=== PATIENT | female | born 1990 | race Caucasian/White ===

== ENCOUNTER → 2017-04-17 15:41 | Outpatient (CLI) | payer OTHER, SELFPAY ==
[2017-04-17 18:18] LABS: Group B Strep DNA By PCR POSITIVE (Negative); Probe Check PASS
== END ==
PROVIDERS: Family Provider Nurse Practitioner Adult Health; PCP Nurse Practitioner Adult Health; Visit Provider Obstetrics & Gynecology
DX: Z36.85 Encounter for antenatal screening for Streptococcus B (principal)
CPT/HCPCS: 87653

== ENCOUNTER 2017-04-22 15:05 | Outpatient (CLI) | payer OTHER, SELFPAY ==
--- NOTE | 2017-04-24 08:42 | OB.TRI.NOTE ---
History of Present Illness Reason For Visit: NST Date of Service: 04/22/17 Gestational age: 37.5 History of Present Illness: 26yo @ 37 5/7wga with GDMA2 for scheduled NST. Home Medications Medication Instructions Recorded Levothyroxine [Synthroid] 100 mcg PO DAILY 08/10/15 Pnv95/Iron Fum/Folic Acid 1 each PO DAILY 08/10/15 [ Caplet] Ondansetron [Zofran Odt] 4 mg PO Q8H PRN PRN #10 tablet 01/27/16 Ondansetron [Zofran] 4 mg IV Q8H PRN PRN #0 vial 01/27/16 Oxycodone HCl/Acetaminophen 1 - 2 tablet PO Q4H PRN PRN #0 01/27/16 [Percocet 5-325] tablet Oxycodone HCl/Acetaminophen 1 - 2 tablet PO Q4H PRN PRN #30 01/27/16 [Percocet 5-325] tablet Allergies No Known Allergies Allergy (Verified 01/27/16 03:49) Physical Exam Vitals: VSS NST - FHR Rate Baby A Baseline: 130 Variability:: Moderate Accelerations:: 15 x 15 Decelerations:: None NST Reactive:: Yes FHR Category:: Category I Uterine Activity:: 03/26 Impression/Plan 26yo @ 37 5/7wga with GDM, Cat I FHR - status reassuring -d/c home
== END 2017-04-22 15:55 | disposition home or self-care (01) ==
LOC: WPOUT 15:17 → WP 15:19
PROVIDERS: Family Provider Nurse Practitioner Adult Health; PCP Nurse Practitioner Adult Health; Visit Provider Obstetrics & Gynecology
DX: O24.410 Gestational diabetes mellitus in pregnancy, diet controlled (principal); Z3A.37 37 weeks gestation of pregnancy
CPT/HCPCS: 59025; 59050; 99218; G0378

== ENCOUNTER 2017-05-01 05:33 | Inpatient (IN) | payer OTHER, SELFPAY ==
[2017-04-29 10:23] LABS: Absolute Lymphocyte Count 1.54 X10^3/ul (0.83-4.51); Basophil# 0.02 X10^3/uL; Basophil% 0.2 % (0-1); Eosinophil# 0.04 X10^3/uL; Eosinophils% 0.4 % (0-5); Hemoglobin 11.7 g/dl (12.0-15.0); International Normalized Ratio 0.9; Lymphocyte # 1.54 X10^3/ul (4.0); Lymphocyte % 13.8 % (19-41); Mean Corp Hgb Conc 32.5 g/gl (32-36); Mean Corpuscular Hgb 28.3 pg (27.0-32.0); Mean Platelet Vol. 10.5 fl (6.2-12.0); Monocyte# 0.47 X10^3/uL; Monocyte% 4.2 % (0-10); Neutrophil # 9.03 X10^3/uL (2.7-7.7); Neutrophil % 81.2 % (47-70); Platelet Count 306 K/mm3 (150-450); Prothrombin Time (Protime)PT. 12.2 SECONDS (11.7-14.9); RBC Distribution Width CV 14.5 % (11.6-14.6); RBC Distribution Width SD 44.9 fl (35.1-43.9); Red Blood Count 4.14 M/mm3 (4.2-5.4); White Blood Count 11.1 K/mm3 (4.4-11.0)
[2017-04-29 10:24] LABS: POSITIVE COUNT NO; POSITIVE DIFFERENTIAL NO; POSITIVE MORPHOLOGY NO; Partial Thromboplast Time 29.7 Seconds (24.1-36.2)
[2017-05-01] VITALS (19 sets, daily range): BP systolic 103–130; BP diastolic 48–82; PULSE 84–114; RESP 13–18; TEMP 36.3–37.2; O2SAT 95–100; BMI 48.4
[2017-05-01] MEDS: Lactated Ringers 1,000 ML 999 ML IV (05:45)
[2017-05-01 06:36] LABS: Bedside Glucose 84 mg/dL (70-110)
[2017-05-01] MEDS: Sodium Citrate/Citric Acid 30 ML UDC PO (07:11)
[2017-05-01] MEDS: Lactated Ringers 1,000 ML 150 ML IV (07:13)
[2017-05-01] MEDS: Oxytocin 30 units/NS 500 ml 30 UNITS/500 ML IV.SOLN 167 UNITS IV (07:53)
[2017-05-01 12:21] LABS: Bedside Glucose 100 mg/dL (70-110)
[2017-05-01] MEDS: Lactated Ringers 1,000 ML 100 ML IV ×2 (12:54→21:16)
[2017-05-01] MEDS: Ketorolac 30 MG/ML Syringe IV ×2 (15:07→21:16)
[2017-05-02] VITALS (7 sets, daily range): BP systolic 109–126; BP diastolic 68–79; PULSE 95–108; RESP 16–18; TEMP 36.5–36.9; O2SAT 97–100
[2017-05-02] MEDS: Ketorolac 30 MG/ML Syringe IV ×4 (04:16→22:23)
[2017-05-02 05:35] LABS: Hematocrit 29.3 % (37-47); Hemoglobin 9.4 g/dl (12.0-15.0); Mean Corp Hgb Conc 32.1 g/gl (32-36); Mean Corpuscular Hgb 28.1 pg (27.0-32.0); Mean Corpuscular Volume 87.5 fL (81-99); Mean Platelet Vol. 9.5 fl (6.2-12.0); Platelet Count 244 K/mm3 (150-450); RBC Distribution Width CV 14.7 % (11.6-14.6); Red Blood Count 3.35 M/mm3 (4.2-5.4); White Blood Count 10.2 K/mm3 (4.4-11.0)
[2017-05-02 05:44] LABS: Scan Indicated on CBC? Y/N NO
[2017-05-02] MEDS: Levothyroxine 100 MCG Tablet PO (05:55)
--- NOTE | 2017-05-02 06:20 | NURSING ---
bgt 108.
[2017-05-02 06:21] LABS: Bedside Glucose 108 mg/dL (70-110)
--- NOTE | 2017-05-02 08:43 | PCM.PN.OB ---
Patient Problems: Active and Suspected Problems 39 weeks gestation of (Acute) Subjective: Pain is minimal. Zuleika was out of bed and ambulating. No flatus yet. Denies nausea or vomiting. Tolerates regular diet. cluster fed overnight. She is nursing well. Denies heavy lochia. Objective: avss - Physical Exam General: Alert, Oriented x3, Cooperative, No apparent distress HEENT: Atraumatic, Normocephalic Lungs: Clear to auscultation, Normal air movement Cardiovascular: Regular rate, Regular Rhythm, Normal S1, Normal S2 Abdomen: Soft, Non Tender, Non-Distended, - - fundus firm and nontender, dressing c/d/i Extremities: No edema, No Calf Tenderness Neurological: Neuro grossly intact Psych/Mental Status: Normal Affect, Appropriate, Alert and oriented to time, place, person, mood and affect Vital Signs Temp Pulse Resp BP Pulse Ox 97.8 F 100 18 118/71 99 05/02/17 04:00 05/02/17 06:21 05/02/17 06:21 05/02/17 04:00 05/02/17 06:21 Oxygen Delivery Method Room Air Weight: 136.248 kg Body Mass Index (BMI) 48.4 Intake and Output for Last 24 Hours 04/30/17 05/01/17 05/02/17 23:59 23:59 23:59 Intake Total 4428 / 4428 1307 / 1307 Output Total 2250 / 2250 1600 / 1600 Balance 2178 / 2178 -293 / -293 Laboratory Tests Past 24 Hrs 05/02/17 05:20 WBC 10.2 RBC 3.35 L Hgb 9.4 L Hct 29.3 L MCV 87.5 MCH 28.1 MCHC 32.1 RDW 14.7 H RDW Differential 47.0 H Plt Count 244 MPV 9.5 POC Glucose 05/02/17 05/01/17 06:17 12:15 POC Glucose 108 100 Assessment/Plan Active and Suspected Problems 39 weeks gestation of (Acute) 26yo POD#1 s/p RLTCS doing well. Rh neg - infant A neg, no Rhogam indicated Rubella immune Routine care
[2017-05-02] MEDS: Prenatal Vits Tablet 1 TABLET PO (10:26)
[2017-05-02] MEDS: 0.9% Saline Lock 10 ML Syringe IV ×3 (10:26→22:24)
[2017-05-02] MEDS: Acetaminophen 500 MG Tablet 1000 MG PO ×2 (14:08→20:59)
--- NOTE | 2017-05-02 16:45 | NURSING ---
1200 While rounding, Mom in shower but desires an electric breast pump through her insurance. Pump given and instructed on it's use. Mom encouraged to call if we can observe a latch. We also discussed doing some follow up pumping to help with accelerating her milk supply. Jamila DRAKE
--- NOTE | 2017-05-02 18:09 | OP.PCM_ITS ---
- Problem List (1) 39 weeks gestation of Status: Acute (2) delivery, delivered, current hospitalization Status: Acute Delivery Classification: Scheduled Final AKUA: 05/08/17 Final AKUA Source: US <20 weeks Gestational age: 39 Weeks and 4 Days Indications: 26-year-old 2 para 1001 at 39 weeks gestational age with gestational hypertension controlled with oral hypo-glycemic presents for scheduled elective repeat section. Indications for : Repeat Elective Description of Procedure: The patient was taken to the operating room and spinal analgesia was administered. She is placed in a dorsal supine position with left lateral tilt. The perineum and abdomen were prepped and draped in sterile fashion. And the spinal was found to be adequate. A Pfannenstiel incision was made using a scalpel and brought down to incise the subcutaneous tissue and rectus fascia at the midline. Subcutaneous tissue was bluntly dissected off the fascia laterally. There was a moderate amount of scarring. The fascial incision was dissected laterally and cephalad using curved Kaur scissors. The superior leaflet of the rectus fascia was grasped using Lucia clamps and bluntly dissected and sharply dissected from the underlying rectus muscle. In a similar fashion the inferior rectus fascia was dissected from the underlying muscle. The rectus muscles were bluntly at the midline. The peritoneum was identified and entered [sharply]. The bladder blade was placed into the abdomen and the vesicouterine peritoneal fold identified with thick adhesion to the abdominal wall peritoneum present. The adhesion was sharply dissected and the fold was incised and a bladder flap created. Bladder blade was then repositioned to the abdomen. A low transverse hysterotomy was made using the [Metzenbaum scissors] to level of the membranes. The hysterotomy was extended bluntly cephalad and caudad. The membranes were then ruptured revealing clear fluid. The head was elevated and brought to the level of the hysterotomy and the infant delivered revealing vigorous [male] . The cord was doubly clamped and cut after 30 seconds. The was passed to awaiting [nursery personnel]. The placenta was [expressed] from the uterus and appeared intact on inspection. The uterus was cleared of debris. The hysterotomy was then repaired using 0 Vicryl running lock suture. The bladder blade was removed. The anterior cul-de-sac was cleared of debris. The peritoneum and rectus muscles were reapproximated using 2-0 Vicryl running suture. The rectus fascia was closed using 0 Vicryl running suture. The subcutaneous tissue was sponge irrigated and small capillary bleeding controlled using the Bovie device. The subcutaneous tissue was reapproximated using 2-0 Vicryl. The skin was closed with 3-0 Vicryl at the dermis and 4-0 Monocryl subcuticularly by the BODY TEAM MEMBER under my supervision. This was followed by Cavilon and a Mepilex occlusive dressing was placed over the incision. The fundus was firm. The patient was then transferred to the recovery room without complication. Sponge, instrument, and needle counts were correct ?2. I was present for the entire procedure. Amniotic Membrane Rupture Type: Artificial Amniotic Fluid Description: Clear Placenta Disposition: [facility] Drain: Dawkins to straight drain Fluids Replaced: 1500 mL Cord Entanglement: None Nuchal Cord Compression: Without compression Cord Vessel Description: 3 Vessels Esitmated Blood Loss (ml): 700 mL Gender: Female (1 minute): 8 (5 minute): 9 Delayed cord clamping: Yes Pre-op Antibiotic Given: Ancef 2 grams IV x1 Pt instructed on risks of surgery: Bleeding, Anesthesia Risks, Infection, Need for Future C-Sections, Injury to surrounding structure(s) including bowel and bladder Complications: None - Admit VTE Documentation VTE Present on Admission: No VTE Mechan Device Prophylaxis: SCD's VTE Pharm Prophylaxis ordered?: No
[2017-05-03 01:35] VITALS: BP 130/84; PULSE 95; RESP 16; TEMP 36.4; O2SAT 98
[2017-05-03] MEDS: Acetaminophen 500 MG Tablet 1000 MG PO ×2 (05:08→16:51)
[2017-05-03] MEDS: Levothyroxine 100 MCG Tablet PO (05:08)
[2017-05-03 05:21] LABS: Bedside Glucose 95 mg/dL (70-110)
--- NOTE | 2017-05-03 07:55 | DCINST_ITS ---
Discharge Diet: No Restrictions Discharge Activity: Return to Normal Activity, May not drive while taking narcotic pain medications., May Shower May resume sexual activity in: 6 weeks Lifting Restrictions: 10 lb Call your doctor if your incision/area has: Continuous Slow Oozing, Sudden Increased Bleeding, Increased Pain/ Swelling, Increased Redness, Foul Smelling Discharge Call your doctor if you observe: Fever of 101 or Higher, Inability to urinate, Inability to have a bowel movement, Using more than one pad per hour, Shortness of breath, Chest pain, Uncontrolled pain Suture Line Care: Avoid Pulling/Pushing Cleanse incision/area with: Soap & Water Additional Instructions: If you experience any of the following, contact your healthcare provider. * Bleeding that soaks a pad every hour for 2 hours * Fever 100.4 or higher * Unrelieved incision or abdominal pain * Swelling, redness, discharge or bleeding from your incision or episiotomy site * Your incision begins to separate * Problems urinating (including inability to urinate or burning while urinating) . * Visual changes * Severe headache * Flu-like symptoms * Pain or redness in one of both of your breasts * Pain, warmth, tenderness or swelling in your legs, especially the calf area * Frequent nausea and vomiting * Symptoms of depression or anxiety If you experience any of the following, call 911 or go to the nearest Emergency Room. * Chest pain * Problems breathing * Seizure activity * Partial or complete paralysis of a body part, slurred speech, weakness or drooping of the face, or a sudden inability to walk or hold your balance Allergies/Adverse Reactions: Allergies No Known Allergies Allergy (Verified 04/29/17 09:48) Medications to take at Discharge Levothyroxine [Synthroid] 100 mcg PO DAILY 08/10/15 Pnv95/Iron Fum/Folic Acid [ Caplet] 1 each PO DAILY 08/10/15 Ibuprofen 800 mg PO TID PRN #30 tab 05/03/17 Oxycodone [Oxyir] 1 - 2 tab PO Q4H PRN PRN 3 Days #28 tablet 05/03/17 Senna/Docusate Sodium [Senokot-S] 1 - 2 tab PO DAILY PRN #60 tablet 05/03/17 The following prescriptions were given: Oxycodone [Oxyir] 1 - 2 tab PO Q4H PRN PRN 3 Days #28 tablet PRN Reason: Pain Ibuprofen 800 mg PO TID PRN #30 tab PRN Reason: Pain Orders to be completed after discharge: Electric breast pump Location: None Selected Follow-Up: Call to make an appointment with your doctor for an incision check in 1-2 weeks. You will also need a 6 week post- follow up appointment. Please Follow Up With: Kia Velasquez MD When: 1-2 weeks Primary Care Physician: Hiral Aleman NP-C [Primary Care Provider] -
[2017-05-03 08:40] VITALS: BP 132/79; PULSE 91; RESP 20; TEMP 36.3; O2SAT 100
--- NOTE | 2017-05-03 09:13 | PCM.PN.OB ---
Patient Problems: Active and Suspected Problems 39 weeks gestation of (Acute) Subjective: Doing well. Pain well controlled with ibuprofen only. Bleeding light. Breast feeding. Tolerating po well. Voiding. Objective: Afeb VSS - Physical Exam General: Alert, Oriented x3, Cooperative, No apparent distress Lungs: Clear to auscultation, Normal air movement Cardiovascular: Regular rate, Regular Rhythm Abdomen: Soft, Non Tender, Non-Distended, - - Fundus firm nontender. Incision dressing dry, no erythema. Extremities: No edema, No Calf Tenderness Skin: No rashes Neurological: Neuro grossly intact Psych/Mental Status: Normal Affect Comment: Lochia light Vital Signs Temp Pulse Resp BP Pulse Ox 97.6 F L 95 16 130/84 H 98 05/03/17 01:35 05/03/17 01:35 05/03/17 01:35 05/03/17 01:35 05/03/17 01:35 Oxygen Delivery Method Room Air Weight: 300 lb 6 oz Body Mass Index (BMI) 48.4 Intake and Output for Last 24 Hours 05/01/17 05/02/17 05/03/17 23:59 23:59 23:59 Intake Total 4428 / 4428 1307 / 1307 Output Total 2250 / 2250 3350 / 3350 Balance 2178 / 2178 -2043 / -2043 POC Glucose 05/03/17 05:16 POC Glucose 95 Assessment/Plan Active and Suspected Problems 39 weeks gestation of (Acute) Doing well on POD#2. Cleared for discharge home today. If baby able to be discharged will discharge home today. Home going instructions and warning given.
--- NOTE | 2017-05-03 09:15 | PCM.DC.SUM ---
Discharge Date and Diagnosis - Problem List Patient Problems: Active and Suspected Problems 39 weeks gestation of (Acute) Date of Admission: 05/01/17 Date of Discharge: 05/03/17 - Primary Discharge Diagnosis Active and Suspected Problems 39 weeks gestation of (Acute), s/p C/S Hospital Course and Treatment Operations: [email or web address] Summary of Care Provided: The patient is a 26 year old F [admitted, underwent uncomplicated vaginal delivery. Post operative course unremarkable. Discharged on POD#2.] Discharge Diet: No Restrictions Discharge Activity: Return to Normal Activity, May not drive while taking narcotic pain medications., May Shower May resume sexual activity in: 6 weeks Call your doctor if your incision/area has: Continuous Slow Oozing, Sudden Increased Bleeding, Increased Pain/ Swelling, Increased Redness, Foul Smelling Discharge Call your doctor if you observe: Fever of 101 or Higher, Inability to urinate, Inability to have a bowel movement, Using more than one pad per hour, Shortness of breath, Chest pain, Uncontrolled pain Suture Line Care: Avoid Pulling/Pushing Cleanse incision/area with: Soap & Water Home Medications: Medications to take at Discharge RX: Levothyroxine [Synthroid] 100 mcg PO DAILY 08/10/15 RX: Pnv95/Iron Fum/Folic Acid [ Caplet] 1 each PO DAILY 08/10/15 RX: Ibuprofen 800 mg PO TID PRN #30 tab 05/03/17 RX: Oxycodone [Oxyir] 1 - 2 tab PO Q4H PRN PRN 3 Days #28 tablet 05/03/17 RX: Senna/Docusate Sodium [Senokot-S] 1 - 2 tab PO DAILY PRN #60 tablet 05/03/17 Following Prescrptions Were Given to Patient: RX: Oxycodone [Oxyir] 1 - 2 tab PO Q4H PRN PRN 3 Days #28 tablet PRN Reason: Pain RX: Ibuprofen 800 mg PO TID PRN #30 tab PRN Reason: Pain Other Amb Orders: Electric breast pump Location: None Selected Primary Care Physician: Hiral Aleman NP-C [Primary Care Provider] - Please Follow Up With: Kia Velasquez MD When: 1-2 weeks Disposition: Home Minutes spent on discharge:: 15 Patient Condition:: Good Meaningful Use Info Meaningful Use Diagnoses (Choose all that apply): None applicable
[2017-05-03] MEDS: Ibuprofen 600 MG Tablet PO ×2 (10:00→20:55)
[2017-05-03 14:00] VITALS: BP 127/71; PULSE 83; RESP 16; TEMP 37
[2017-05-03] MEDS: Prenatal Vits Tablet 1 TABLET PO (15:07)
[2017-05-03 20:45] VITALS: BP 110/57; PULSE 95; RESP 16; TEMP 36.9
[2017-05-04 03:00] VITALS: BP 123/71; PULSE 96; RESP 16; TEMP 36.7
[2017-05-04] MEDS: Acetaminophen 500 MG Tablet 1000 MG PO (03:40)
[2017-05-04] MEDS: Levothyroxine 100 MCG Tablet PO (06:12)
[2017-05-04 07:50] VITALS: BP 115/64; PULSE 77; RESP 18; TEMP 36.3; O2SAT 100
[2017-05-04] MEDS: Ibuprofen 600 MG Tablet PO (08:14)
--- NOTE | 2017-05-04 09:07 | PCM.PN.OB ---
Patient Problems: Active and Suspected Problems 39 weeks gestation of (Acute) Subjective: Doing well. Pain well controlled. Bleeding light. Objective: Afeb VSS - Physical Exam General: Alert, Oriented x3, Cooperative, No apparent distress Lungs: Clear to auscultation, Normal air movement Cardiovascular: Regular rate, Regular Rhythm Abdomen: Soft, Non Tender, Non-Distended, - - Incision intact, dry, no erythema Skin: No rashes Neurological: Neuro grossly intact Psych/Mental Status: Normal Affect Comment: Lochia light Vital Signs Temp Pulse Resp BP Pulse Ox 98.0 F 96 16 123/71 H 100 05/04/17 03:00 05/04/17 03:00 05/04/17 03:00 05/04/17 03:00 05/03/17 08:40 Oxygen Delivery Method Room Air Weight: 300 lb 6 oz Body Mass Index (BMI) 48.4 Intake and Output for Last 24 Hours 05/02/18 05/03/18 05/04/17 23:59 23:59 23:59 Intake Total 1307 / 1307 Output Total 3350 / 3350 Balance -2042 / -2042 Assessment/Plan Active and Suspected Problems 39 weeks gestation of (Acute) Doing well on POD#3. Cleared for discharge home today. Home going instructions and warnings given.
--- NOTE | 2017-05-04 09:09 | PCM.DC.SUM ---
Discharge Date and Diagnosis - Problem List Patient Problems: Active and Suspected Problems 39 weeks gestation of (Acute) Date of Admission: 05/01/17 Date of Discharge: 05/04/17 - Primary Discharge Diagnosis Active and Suspected Problems 39 weeks gestation of (Acute) Hospital Course and Treatment Operations: - - C/S Summary of Care Provided: This is addendum to discharge summary from 05/03/17. Discharged today 05/04/17.] Discharge Diet: No Restrictions Discharge Activity: Return to Normal Activity, May not drive while taking narcotic pain medications., May Shower May resume sexual activity in: 6 weeks Call your doctor if your incision/area has: Continuous Slow Oozing, Sudden Increased Bleeding, Increased Pain/ Swelling, Increased Redness, Foul Smelling Discharge Call your doctor if you observe: Fever of 101 or Higher, Inability to urinate, Inability to have a bowel movement, Using more than one pad per hour, Shortness of breath, Chest pain, Uncontrolled pain Suture Line Care: Avoid Pulling/Pushing Cleanse incision/area with: Soap & Water Home Medications: Medications to take at Discharge Levothyroxine [Synthroid] 100 mcg PO DAILY 08/10/15 Pnv95/Iron Fum/Folic Acid [ Caplet] 1 each PO DAILY 08/10/15 Ibuprofen 800 mg PO TID PRN #30 tab 05/03/17 Ibuprofen [Motrin] 800 mg PO TID PRN PRN #30 tab 05/03/17 Levothyroxine [Synthroid] 100 mcg PO DAILY@0600 tablet 05/03/17 Oxycodone [Oxyir] 1 - 2 tab PO Q4H PRN PRN 3 Days #28 tablet 05/03/17 Oxycodone [Oxyir] 5 - 10 mg PO Q4H PRN PRN 7 Days #28 tab 05/03/17 Vits [Prenatabs FA ] 1 tablet PO DAILY@1200 tablet 05/03/17 Senna/Docusate Sodium [Senokot-S] 1 - 2 tab PO DAILY PRN #60 tablet 05/03/17 Following Prescrptions Were Given to Patient: Oxycodone [Oxyir] 1 - 2 tab PO Q4H PRN PRN 3 Days #28 tablet PRN Reason: Pain Oxycodone [Oxyir] 5 - 10 mg PO Q4H PRN PRN 7 Days #28 tab PRN Reason: Mod-Severe Pain (4-12/24) Ibuprofen [Motrin] 800 mg PO TID PRN PRN #30 tab PRN Reason: pain or cramping Ibuprofen 800 mg PO TID PRN #30 tab PRN Reason: Pain Other Amb Orders: Electric breast pump Location: None Selected Primary Care Physician: Hiral Aleman NP-C [Primary Care Provider] - Please Follow Up With: Kia Velasquez MD When: 1-2 weeks Disposition: Home Minutes spent on discharge:: 15 Patient Condition:: Good Meaningful Use Info Meaningful Use Diagnoses (Choose all that apply): None applicable
== END 2017-05-04 10:00 | disposition home or self-care (01) | DRG 765 ==
PROVIDERS: Admitting Provider Obstetrics & Gynecology; Family Provider Nurse Practitioner Adult Health; PCP Nurse Practitioner Adult Health; Visit Provider Obstetrics & Gynecology
DX: O34.211 Maternal care for low transverse scar from previous cesarean delivery (principal); Z68.43 Body mass index [BMI] 50.0-59.9, adult; E66.01 Morbid (severe) obesity due to excess calories; O13.4 Gestational [pregnancy-induced] hypertension without significant proteinuria, complicating childbirth; O99.214 Obesity complicating childbirth; O99.283 Endocrine, nutritional and metabolic diseases complicating pregnancy, third trimester; E03.9 Hypothyroidism, unspecified; Z37.0 Single live birth; Z3A.39 39 weeks gestation of pregnancy; Z83.3 Family history of diabetes mellitus
CPT/HCPCS: 82962; 85025; 85027; 85610; 85730; 86850; 86900; 99218; J7120; A4216; G0378; J2405

== ENCOUNTER → 2017-06-24 10:19 | Outpatient (CLI) | payer OTHER, SELFPAY ==
[2017-06-24 11:36] LABS: Free T3 2.6 pg/mL (2.18-3.98); T4 Free Direct 1.05 ng/dL (0.76-1.46); Thyroid Stim Hormone (TSH) 3.53 uIU/mL (0.358-3.74)
== END ==
PROVIDERS: Visit Provider Obstetrics & Gynecology
DX: E03.9 Hypothyroidism, unspecified (principal)
CPT/HCPCS: 36415; 84439; 84443; 84481

== ENCOUNTER → 2017-07-25 13:32 | Outpatient (CLI) | payer OTHER, SELFPAY ==
[2017-07-25 17:06] LABS: Chlamydia Trachomatis by PCR Negative (Negative); Neisserai gonorrhoeae by PCR Negative (Negative); Probe Check PASS; Sample Adequacy Control PASS; Specimen Processing Control PASS
== END ==
PROVIDERS: Visit Provider Obstetrics & Gynecology
DX: Z11.3 Encounter for screening for infections with a predominantly sexual mode of transmission (principal)
CPT/HCPCS: 87491; 87591

== ENCOUNTER → 2017-09-04 14:50 | Outpatient (CLI) | payer OTHER, SELFPAY ==
[2017-09-04 16:44] LABS: Hemoglobin A1c 5.5 % (4.2-6.3)
== END ==
PROVIDERS: Family Provider Nurse Practitioner Adult Health; PCP Nurse Practitioner Adult Health; Visit Provider Obstetrics & Gynecology
DX: Z86.32 Personal history of gestational diabetes (principal)
CPT/HCPCS: 36415; 83036

== ENCOUNTER 2017-09-09 07:57 | Emergency (ER) | payer OTHER, SELFPAY ==
[2017-09-09 07:57] VITALS: BP 138/81; PULSE 78; RESP 18; TEMP 36.6; O2SAT 99; BMI 46.5
--- NOTE | 2017-09-09 08:24 | EKG12_ITS ---
Test Reason : CP Blood Pressure : / mmHG Vent. Rate : 069 BPM Atrial Rate : 069 BPM P-R Int : 198 ms QRS Dur : 096 ms QT Int : 398 ms P-R-T Axes : 034 025 003 degrees QTc Int : 426 ms Normal sinus rhythm Normal ECG Confirmed by KENDRA LAN MD ([id number]), website/blog editor GERA DYKES ([id number] on 09/12/2017 8:43:09 AM Referred By: ROGELIO Confirmed By:KENDRA LAN MD
--- NOTE | 2017-09-09 08:28 | ED.DCSUM_ITS ---
- ER Visit Summary Date of Service: 09/09/17 Chief Complaint: Chest pain History of Present Illness: The patient is a 27 F who reports chest pain over the upper anterior chest pain. Patient states the pain started yesterday it was worse today. She feels somewhat dizzy with deep breaths. She denies shortness of breath to me. She denies recent travel, personal or family history of blood clots. She did have a in April. She has not had cough or congestion. Physical Examination: Vital signs are unremarkable. Patient sitting upright in bed no acute distress. Head neck examination is unremarkable. Heart is regular rate and rhythm. Lung sounds are clear with good air movement bilaterally. She has mild anterior chest wall tenderness. There is no crepitus. Abdomen is soft nontender. Lower external examination reveals no calf tenderness or edema. She has equal palpable pulses throughout. Test Results: EKG is sinus at 69 with no sign of acute ischemia. Portable chest x-ray is normal. CBC and chemistry studies are normal. Urinalysis is normal. test negative. Troponin normal. D-dimer slightly elevated at 0.66. Emergency Department Course and Treatment: Patient was given IV fluids and Toradol. On repeat evaluation her pain is improved. CTA of the chest was obtained and is unremarkable. Patient be given a prescription for Toradol tabs at home if needed. Treatment Plan: [] Disposition: Discharge Impression: Atypical chest pain This note was generated with [employer] dictation software. It may contain incorrect words, spelling, and punctuation that were not noted in review of the chart prior to signing ED Disposition - Plan for ED Patient: Chief Complaint: Chest Pain Referrals: Hiral Aleman NP-C [Primary Care Provider] -
--- NOTE | 2017-09-09 08:30 | RAD_ITS ---
STUDY: X-RAY CHEST REASON FOR EXAM: Female, 27 years old. Chest pain. TECHNIQUE: Single AP portable view of the chest. COMPARISON: None. FINDINGS: The lungs are clear and expanded. There is no demonstrated pleural abnormality. Normal size heart. Normal mediastinum and anatoliy. Normal visualized pulmonary arteries. Normal visualized aortic arch and descending thoracic aorta. Normal visualized thoracic spine. Normal visualized ribs, clavicles, and shoulders. There is no demonstrated abnormality of the visualized soft tissue structures of the upper abdomen. RAD/Chest 1 View (Portable) IMPRESSION: Normal x-ray examination of the chest. Electronically Signed: Sebastien Sharma MD at 9:03 EDT Tel [phone], Service support ,
[2017-09-09] MEDS: Ketorolac 30 MG/ML Syringe IV (08:53)
[2017-09-09] MEDS: 0.9% Normal Saline 1,000 ML 150 ML IV (08:53)
[2017-09-09 08:55] VITALS: BP 115/78; PULSE 76; RESP 14; O2SAT 97
[2017-09-09 08:56] LABS: Absolute Lymphocyte Count 2.09 X10^3/ul (0.83-4.51); Absolute Neutrophil Count 6.4 X10^3/uL (2.0-7.7); Basophil# 0.04 X10^3/uL; Basophil% 0.4 % (0-1); Eosinophil# 0.19 X10^3/uL; Eosinophils% 2.1 % (0-5); Hematocrit 41.8 % (37-47); Hemoglobin 13.3 g/dl (12.0-15.0); Lymphocyte # 2.09 X10^3/ul (4.0); Lymphocyte % 22.9 % (19-41); Mean Corp Hgb Conc 31.8 g/gl (32-36); Mean Corpuscular Hgb 25.9 pg (27.0-32.0); Mean Corpuscular Volume 81.3 fL (81-99); Mean Platelet Vol. 9.6 fl (6.2-12.0); Monocyte% 4.4 % (0-10); Neutrophil # 6.37 X10^3/uL (2.7-7.7); Platelet Count 336 K/mm3 (150-450); RBC Distribution Width CV 14.6 % (11.6-14.6); RBC Distribution Width SD 42.9 fl (35.1-43.9); Red Blood Count 5.14 M/mm3 (4.2-5.4); White Blood Count 9.1 K/mm3 (4.4-11.0)
[2017-09-09 08:57] LABS: POSITIVE COUNT NO; POSITIVE DIFFERENTIAL NO; POSITIVE MORPHOLOGY NO
[2017-09-09 09:06] LABS: Bacteria 0 SEEN /hpf (None Seen); Mucous, Urine 0 SEEN /hpf (<or=2+); Red Blood Cells-Urine 0 SEEN /hpf (0-5); Squamous Epithelial Cells - UA 0 SEEN /hpf (5-10); White Blood Cells 0 SEEN /hpf (0-5)
[2017-09-09 09:09] LABS: Color, Urine Straw (Yellow); Glucose, Dipstick Normal (Normal); Ketone-Dipstick Negative (Negative); Leukocyte Esterase-Dipstick Negative /ul (Negative); Nitrite-Dipstick Negative (Negative); Occult Blood-Urine Negative /ul (Negative); Protein-Dipstick Negative (Negative); Urine Bilirubin Dipstick Negative (Negative); Urine Clarity Clear (Clear); Urine Urobilinogen Normal (Normal)
[2017-09-09 09:12] LABS: Anion Gap 5 (5-15); BUN 10 mg/dL (7-18); BUN/Creat Ratio 15.3 RATIO (10-20); Calcium,Total 9.1 mg/dL (8.5-10.1); Chloride 107 mmol/L (98-107); Creatinine, Serum 0.65 mg/dL (0.55-1.02); EST Glomerular Filtration Rate 116 mL/min (>60); Est Glom Filt Rate - Afr Amer 140 mL/min (>60); Estimated Creatinine Clearance 116.98 ml/min; Glucose 93 mg/dL (74-106); Potassium 3.9 mmol/L (3.5-5.1); Sodium Level 141 mmol/L (136-145)
[2017-09-09 09:17] LABS: D-Dimer Quantitative (DVT/PE) 0.66 FEU/ug/m (0.27-0.49)
--- NOTE | 2017-09-09 09:19 | CT_ITS ---
STUDY: CTA CHEST REASON FOR EXAM: Female, 27 years old. 2 day history of chest pain and shortness of breath. Elevated d-dimer. RADIATION DOSAGE (If Supplied By Facility): CTDIvol = ( 16.72 ) mGy, DLP = ( 703.95 ) mGycm TECHNIQUE: The examination was performed with the intravenous administration of 100 ml of Isovue 370 contrast material. Post-processing of the angiographic images was performed, with multiplanar reformation and 3D reconstruction. Individualized dose optimization techniques were used for this CT. COMPARISON: None. FINDINGS: Normal enhancement of the main pulmonary artery and right and left pulmonary arteries. Normal enhancement of the bilateral peripheral pulmonary arteries. There is no demonstrated pulmonary embolism. Normal thoracic aorta and visualized great vessels. There is no demonstrated aortic dissection. Normal heart and pericardium. Normal mediastinum. Normal hilar regions. Normal visualized trachea and bronchi. The lungs are well expanded. Normal pulmonary parenchyma. Normal pleura. Normal chest wall structures. Normal osseous structures. Normal visualized upper abdomen. CT/CTA Chest W/WO Contrast IMPRESSION: Normal CTA chest examination, without a demonstrated pulmonary embolism or arterial dissection. Electronically Signed: Sebastien Sharma MD at 10:34 EDT Tel [phone], Service support ,
[2017-09-09 09:23] LABS: Pregnancy, Serum, hCG Quali. NEGATIVE Negative (0-9 Nonpreg)
--- NOTE | 2017-09-09 10:40 | ED.DEP ---
ED Disposition - Plan for ED Patient: Disposition: Home or Assisted Living Chief Complaint: Chest Pain Instructions: ED Chest Pain Atypical Unkn Cause Prescriptions: Ketorolac [Toradol] 10 mg PO Q6H PRN #14 tablet PRN Reason: Pain Referrals: Hiral Aleman NP-C [Primary Care Provider] - 1 Week
[2017-09-09 11:11] VITALS: BP 107/66; PULSE 73; RESP 24; O2SAT 99
== END 2017-09-09 11:15 | disposition home or self-care (01) ==
PROVIDERS: Emergency Provider Emergency Medicine; Family Provider Nurse Practitioner Adult Health; PCP Nurse Practitioner Adult Health
DX: R07.89 Other chest pain (principal); R42 Dizziness and giddiness; R06.00 Dyspnea, unspecified; R11.0 Nausea; R79.89 Other specified abnormal findings of blood chemistry; E03.9 Hypothyroidism, unspecified; Z86.32 Personal history of gestational diabetes; Z79.899 Other long term (current) drug therapy
CPT/HCPCS: 71045; 71275; 80048; 81001; 84484; 84703; 85025; 85379; 93005; 96361; 96374; 99284; J7030; Q9967; A4216

== ENCOUNTER → 2017-10-24 10:43 | Outpatient (CLI) | payer OTHER, SELFPAY ==
--- NOTE | 2017-10-24 10:47 | US_ITS ---
STUDY: ULTRASOUND BREAST - RIGHT REASON FOR EXAM: Female, 27 years old. History with prior right breast ultrasound report given of breast densities by physical exam. 6 month follow-up ultrasound study, patient is now nursing. TECHNIQUE: Axial and longitudinal images of the RIGHT breast were performed with a high resolution ultrasound transducer. COMPARISON: 09/16/2017 Right Breast Ultrasound FINDINGS: RIGHT Breast: The lesion measures 0.5 x 0.5 x 0.3 cm in size. Clock notation: 12 o'clock position. Distance from nipple: 4.0 cm. Posterior Enhancement: Mild Posterior Shadowing: None Margins: Smooth and well demarcated Echogenicity: . Heterogeneous predominantly hypoechoic without internal color Doppler signal. Compression effect On Shape: No change US/Breast Limited Unilateral IMPRESSION: No change right breast minimally complex cysts, probably benign discretion ultrasound findings. Recommend right breast ultrasound in 6 months for short-term interval follow-up of probably benign findings. ASSESSMENT CATEGORY: BIRADS Category 3: Probably Benign - Short-Interval Follow-up Suggested. A letter regarding these results will be sent to the patient by the facility within 30 days. Electronically Signed: Addy Cifuentes, at 21:09 EDT Tel , Service support ,
== END ==
PROVIDERS: Family Provider Nurse Practitioner Adult Health; PCP Nurse Practitioner Adult Health; Visit Provider Obstetrics & Gynecology
DX: N63.10 Unspecified lump in the right breast, unspecified quadrant (principal)
CPT/HCPCS: 76642

== ENCOUNTER → 2018-11-06 | Outpatient (CLI) | payer OTHER, SELFPAY ==
[2017-10-31 13:13] VITALS: BMI 48.6
[2018-11-06 13:18] LABS: T4 Free Direct 1.11 ng/dL (0.76-1.46); Thyroid Stim Hormone (TSH) 2.26 uIU/mL (0.358-3.74)
== END | disposition home or self-care (01) ==
LOC: LAB 10:59
PROVIDERS: Family Provider Internal Medicine; PCP Internal Medicine; Referring Provider Internal Medicine; Visit Provider Internal Medicine
DX: E03.9 Hypothyroidism, unspecified (principal)
CPT/HCPCS: 36415; 84439; 84443

== ENCOUNTER → 2020-01-03 15:12 | Outpatient (CLI) | payer OTHER, SELFPAY ==
[2020-01-03 14:47] VITALS: BMI 50.7
[2020-01-03 17:05] LABS: Absolute Neutrophil Count 7.2 X10^3/uL (2.0-7.7); Basophil# 0.04 X10^3/uL; Basophil% 0.4 % (0-1); Eosinophil# 0.12 X10^3/uL; Eosinophils% 1.1 % (0-5); Hematocrit 44.1 % (37-47); Hemoglobin 13.8 g/dL (12.0-15.0); Lymphocyte % 27.5 % (19-41); Mean Corp Hgb Conc 31.3 g/dL (32-36); Mean Corpuscular Hgb 26.5 pg (27.0-32.0); Mean Corpuscular Volume 84.6 fL (81-99); Mean Platelet Vol. 10.2 fl (6.2-12.0); Monocyte# 0.52 X10^3/uL; Monocyte% 4.8 % (0-10); NRBC Flagged by Analyzer 0 % (0-5); Neutrophil # 7.19 X10^3/uL (2.7-7.7); Neutrophil % 65.9 % (47-70); Platelet Count 382 K/mm3 (150-450); RBC Distribution Width CV 13.5 % (11.6-14.6); Red Blood Count 5.21 M/mm3 (4.2-5.4); White Blood Count 10.9 K/mm3 (4.4-11.0)
[2020-01-03 17:48] LABS: Internal QC Validated? YES +Cl - CLEAR BKGD; Pregnancy, Serum, hCG Quali. NEGATIVE Negative
[2020-01-03 17:51] LABS: ALB/GLOB Ratio 0.7 RATIO (0.9-2.4); AST(SGOT) 20 U/L (15-37); Alanine Aminotransfer ALT/SGPT 37 U/L (13-56); Albumin, Serum 3.4 g/dL (3.2-5.0); Alkaline Phosphatase 155 U/L (45-117); Anion Gap 8 (5-15); BUN 8 mg/dL (7-18); BUN/Creat Ratio 11.1 RATIO (10-20); Calcium,Total 8.8 mg/dL (8.5-10.1); Chloride 105 mmol/L (98-107); Cholesterol 156 mg/dL (200); Creatinine, Serum 0.72 mg/dL (0.55-1.02); EST Glomerular Filtration Rate 101 mL/min (>60); Est Glom Filt Rate - Afr Amer 123 mL/min (>60); Globulin 4.7 g/dL (2.2-4.2); Glucose 79 mg/dL (74-106); High Density Lipoprotein 45 mg/dL; Potassium 3.7 mmol/L (3.5-5.1); Protein, Total 8.1 g/dL (6.4-8.2); Sodium Level 140 mmol/L (136-145); Thyroid Stim Hormone (TSH) 2.74 uIU/mL (0.358-3.74); Triglycerides 157 mg/dL; Very Low Density Lipoprotein 31 mg/dL (5-40)
== END ==
PROVIDERS: PCP Internal Medicine; Visit Provider Internal Medicine
DX: E78.5 Hyperlipidemia, unspecified (principal); E03.9 Hypothyroidism, unspecified; N93.9 Abnormal uterine and vaginal bleeding, unspecified; N91.2 Amenorrhea, unspecified
CPT/HCPCS: 36415; 80053; 80061; 84443; 84703; 85025

== ENCOUNTER → 2020-03-01 11:27 | Outpatient (CLI) | payer OTHER, SELFPAY ==
[2020-01-03 14:47] VITALS: BMI 50.7
[2020-03-01 13:50] LABS: Absolute Lymphocyte Count 1.97 X10^3/uL (0.83-4.51); Absolute Neutrophil Count 8.6 X10^3/uL (2.0-7.7); Basophil# 0.03 X10^3/uL; Basophil% 0.3 % (0-1); Eosinophil# 0.06 X10^3/uL; Eosinophils% 0.5 % (0-5); Hematocrit 41.8 % (37-47); Lymphocyte # 1.97 X10^3/ul (4.0); Lymphocyte % 17.8 % (19-41); Mean Corp Hgb Conc 31.1 g/dL (32-36); Mean Corpuscular Hgb 26.9 pg (27.0-32.0); Mean Corpuscular Volume 86.5 fL (81-99); Mean Platelet Vol. 10.1 fl (6.2-12.0); Monocyte# 0.38 X10^3/uL; Monocyte% 3.4 % (0-10); NRBC Flagged by Analyzer 0 % (0-5); Neutrophil # 8.58 X10^3/uL (2.7-7.7); Neutrophil % 77.6 % (47-70); Platelet Count 362 K/mm3 (150-450); RBC Distribution Width CV 13.7 % (11.6-14.6); RBC Distribution Width SD 43.5 fl (35.1-43.9); Red Blood Count 4.83 M/mm3 (4.2-5.4); White Blood Count 11.1 K/mm3 (4.4-11.0)
[2020-03-01 14:02] LABS: Amphetamine Urine VISTA NEGATIVE (<1000 ng/mL); Barbiturate Urine VISTA NEGATIVE (< 200 ng/mL); Benzodiazepine Urine VISTA NEGATIVE (< 200 ng/mL); Cocaine Urine VISTA NEGATIVE (< 300 ng/mL); Ecstacy Urine VISTA NEGATIVE (< 500 ng/mL); Methadone Urine VISTA NEGATIVE (< 300 ng/mL); PCP Urine VISTA NEGATIVE (< 25 ng/mL); THC Urine VISTA NEGATIVE (< 50 ng/mL); Vista UDS pH Range 6
[2020-03-01 14:08] LABS: Free T3 2.3 pg/mL (2.18-3.98); T4 Free Direct 1.13 ng/dL (0.76-1.46); Thyroid Stim Hormone (TSH) 2.61 uIU/mL (0.358-3.74)
[2020-03-01 14:09] LABS: Color, Urine Yellow (Yellow); Glucose, Dipstick Normal (Normal); Ketone-Dipstick Negative (Negative); Leukocyte Esterase-Dipstick Negative /ul (Negative); Nitrite-Dipstick Negative (Negative); Occult Blood-Urine Negative /ul (Negative); Protein-Dipstick Negative (Negative); Specific Gravity, Urine 1.005 (1.002-1.030); Urine Bilirubin Dipstick Negative (Negative); Urine Clarity Sl. Cloudy (Clear); Urine Urobilinogen Normal (Normal)
[2020-03-01 14:40] LABS: HIV - WCH Non-Reactive (Nonreactive); Hepatitis B Surface Antigen Non-Reactive (Nonreactive); Hepatitis C Antibody Non-Reactive (Nonreactive); Rubella IgG Reactive (Nonreactive)
[2020-03-02 02:39] LABS: Prenatal RPR NONREACTIVE (NONREACTIVE)
[2020-03-02 20:07] LABS: Chlamydia By Nucleic Acid AMP Negative (Negative)
[2020-03-02 22:48] LABS: Gonococcus By Nucleic Acid AMP Negative (Negative)
[2020-03-03 17:04] LABS: HPV Reflexed? NOT INDICATED
[2020-03-06 09:30] LABS: Vitamin D,25 Hydroxy 24.4 ng/mL
== END ==
PROVIDERS: PCP Internal Medicine; Visit Provider Obstetrics & Gynecology
DX: Z34.81 Encounter for supervision of other normal pregnancy, first trimester (principal); E55.9 Vitamin D deficiency, unspecified; Z12.4 Encounter for screening for malignant neoplasm of cervix; Z11.3 Encounter for screening for infections with a predominantly sexual mode of transmission
CPT/HCPCS: 36415; 80307; 81002; 82306; 84439; 84443; 84481; 85025; 86703; 86762; 86803; 87340; 87491; 87591; 88175; G0145

== ENCOUNTER → 2020-05-05 13:31 | Outpatient (CLI) | payer OTHER, SELFPAY ==
[2020-01-03 14:47] VITALS: BMI 50.7
[2020-05-05 16:02] LABS: Free T3 2.2 pg/mL (2.18-3.98); T4 Free Direct 1.12 ng/dL (0.76-1.46); Thyroid Stim Hormone (TSH) 2.04 uIU/mL (0.358-3.74)
== END ==
PROVIDERS: PCP Internal Medicine; Visit Provider Obstetrics & Gynecology
DX: E03.9 Hypothyroidism, unspecified (principal); Z79.899 Other long term (current) drug therapy
CPT/HCPCS: 36415; 84439; 84443; 84481

== ENCOUNTER → 2020-07-25 17:09 | Outpatient (CLI) | payer OTHER, SELFPAY ==
[2020-01-03 14:47] VITALS: BMI 50.7
[2020-07-25 17:32] LABS: Hematocrit 37.5 % (37-47); Hemoglobin 12.1 g/dL (12.0-15.0); Mean Corp Hgb Conc 32.3 g/dL (32-36); Mean Corpuscular Hgb 27.8 pg (27.0-32.0); Mean Corpuscular Volume 86.2 fL (81-99); Mean Platelet Vol. 9.5 fl (6.2-12.0); Platelet Count 386 K/mm3 (150-450); RBC Distribution Width CV 13.5 % (11.6-14.6); RBC Distribution Width SD 41.9 fl (35.1-43.9); Red Blood Count 4.35 M/mm3 (4.2-5.4); White Blood Count 12.3 K/mm3 (4.4-11.0)
[2020-07-25 18:35] LABS: T4 Free Direct 1.01 ng/dL (0.76-1.46); Thyroid Stim Hormone (TSH) 2.42 uIU/mL (0.358-3.74)
== END ==
PROVIDERS: PCP Internal Medicine; Visit Provider Obstetrics & Gynecology
DX: Z34.82 Encounter for supervision of other normal pregnancy, second trimester (principal); E03.9 Hypothyroidism, unspecified
CPT/HCPCS: 36415; 84439; 84443; 85027; 86850; 86900; 86901

== ENCOUNTER → 2020-09-26 | Outpatient (CLI) | payer OTHER, SELFPAY ==
[2020-01-03 14:47] VITALS: BMI 50.7
== END | disposition home or self-care (01) ==
LOC: LABSPEC 16:24
PROVIDERS: PCP Internal Medicine; Visit Provider Obstetrics & Gynecology
DX: Z36.85 Encounter for antenatal screening for Streptococcus B (principal)
CPT/HCPCS: 87081

== ENCOUNTER 2020-10-13 05:00 | Inpatient (IN) | payer OTHER, SELFPAY ==
[2020-01-03 14:47] VITALS: BMI 50.7
[2020-10-13] VITALS (15 sets, daily range): BP systolic 94–123; BP diastolic 45–64; PULSE 77–96; RESP 16–18; TEMP 36.2–36.9; O2SAT 96–100; BMI 51.7
[2020-10-13] MEDS: Lactated Ringers 1,000 ML 999 ML IV (05:45)
[2020-10-13 05:51] LABS: Bedside Glucose 106 mg/dL (70-110)
[2020-10-13] MEDS: Acetaminophen 500 MG Tablet 1000 MG PO ×3 (05:58→17:45)
[2020-10-13 06:10] LABS: Absolute Lymphocyte Count 2.02 X10^3/uL (0.83-4.51); Absolute Neutrophil Count 7.6 X10^3/uL (2.0-7.7); Basophil# 0.02 X10^3/uL; Basophil% 0.2 % (0-1); Eosinophil# 0.06 X10^3/uL; Eosinophils% 0.6 % (0-5); Hematocrit 35.4 % (37-47); Hemoglobin 11.3 g/dL (12.0-15.0); Lymphocyte # 2.02 X10^3/ul (0.83-4.51); Lymphocyte % 19.4 % (19-41); Mean Corp Hgb Conc 31.9 g/dL (32-36); Mean Corpuscular Hgb 27.7 pg (27.0-32.0); Mean Corpuscular Volume 86.8 fL (81-99); Mean Platelet Vol. 9.9 fl (6.2-12.0); Monocyte# 0.61 X10^3/uL; Monocyte% 5.9 % (0-10); NRBC Flagged by Analyzer 0 % (0-5); Neutrophil # 7.62 X10^3/uL (2.7-7.7); Platelet Count 303 K/mm3 (150-450); RBC Distribution Width CV 14.1 % (11.6-14.6); RBC Distribution Width SD 44.2 fl (35.1-43.9); Red Blood Count 4.08 M/mm3 (4.2-5.4); White Blood Count 10.4 K/mm3 (4.4-11.0)
[2020-10-13] MEDS: Lactated Ringers 1,000 ML 150 ML IV (06:49)
[2020-10-13] MEDS: Sodium Citrate/Citric Acid 30 ML UDC PO (07:11)
--- NOTE | 2020-10-13 07:44 | HP.PCM.OB_ITS ---
HPI - General General Date of Admission: 10/13/20 Chief Complaint: section HPI Narrative ZULEIKA SOSA, is a 30 F 3 para 2-0-0-2 at 39 weeks gestational age with gestational diabetes who presents for scheduled repeat section with Paragard IUD insertion. Maternal Data Information AKUA Calculator Estimated Delivery Date Method Current WG Current Estimate 10/20/20 Manual 39w 1d Final KAUA: 10/20/20 Final AKUA Source: US <20 weeks PFSH PFS Medical History (Updated 10/13/20 @ 09:[address] Kia Gaitan MD) Gestational diabetes History of cyst of breast History of gestational diabetes Hypothyroidism Seasonal allergies Superficial varicosities Thyroid disorder Home Medications levothyroxine 100 mcg tablet 100 mcg PO DAILY #90 tab 10/21/19 [Rx Last Taken Unknown] glyburide 7.5 mg PO QHS 10/13/20 [History Last Taken Unknown] vit,[id number] 1 tablet PO DAILY@1200 10/13/20 [History Last Taken Unknown] Allergy/AdvReac Type Severity Reaction Status Date / Time No Known Allergies Allergy Verified 10/13/20 05:36 Family History Mother Thyroid disorder Hyperlipemia Grandfather Colon cancer Parkinson disease Cancer skin Brother Bipolar 1 disorder Grandmother Thyroid disorder Father Hypertension Surgical History History of section History of cholecystectomy Social History (Updated 11/16/18 @ 09:[address] Dimitri Lyon MD) Smoking Status: Never smoker alcohol intake: never substance use type: does not use what type of physical activity do you participate in: walking frequency: 1-2 times per week History Elective abortions Hx Para 2 Spontaneous abortions Hx # Term Pregnancies Ectopic pregnancies Hx # Pregnancies Multiple births # of living children Vital Signs Vital Signs Vital Signs: 10/13/20 05:59 Temperature 97.2 F L Temperature Source Temporal Pulse Rate 84 Respiratory Rate 16 Blood Pressure 115/64 Blood Pressure Mean 81 Blood Pressure Source Monitor Blood Pressure Position Semi-Fowlers Blood Pressure Location Left Arm Pulse Ox 97 Oxygen Delivery Method Room Air Weight Weight: 141 kg Body Mass Index (BMI) 51.7 Physical Exam Const alert, oriented x3 and no apparent distress HEENT normocephalic Resp normal respiratory effort, normal air movement and clear to auscultation bilaterally Cardio regular rate and regular rhythm GI normal to inspection, nondistended, normoactive bowel sounds, soft to palpation, non-tender and non-distended Inspection: gravid Labs Labs Labs: Blood Type O NEGATIVE Antibody Screen NEGATIVE Hct 30.8 % (37-47) L Hgb 9.7 g/dL (12.0-15.0) L VZV IgG Antibody 205 index (Immune >165) Rubella IgG Antibody Reactive (Nonreactive) Hep Bs Antigen Non-Reactive (Nonreactive) Neisseria gonorrhoeae DNA (ELISA) Negative (Negative) HIV 1&2 Antibody Non-Reactive (Nonreactive) C.trachomatis DNA (PCR) Negative (Negative) Glucose 1 Hr 50 gm 164 mg/dL (70-140) H Group B Strep DNA POSITIVE (Negative) H Rhogam given: No ACOG ANTEPARTUM RECORD - HISTORY AND PHYSICAL (10/13/2020) Name: ZULEIKA SOSA History of this : This is a 30 year old [id number] presents at 39 wks + 0 days gestation. OB Physician: Kia Gaitan MD 's Physician: DR. MINDY ALAN ...................................................................... : 1990 Age: 30 Address: [address] [place] [address] Phone: H) [phone] Insurance Carrier: [facility] [id number] Emergency Contact: LYUDMILA SHEILA/ [phone] ...................................................................... Final AKUA: 10/20/20 By Ultrasound: 11 weeks 0 days PARITY: (G-Total Pregnancies P-Fullterm,Premature,Induced AB,Spont AB, Ectopics, Multipl e,Living) AKUA CONFIRMATION: By LMP: 01/08/20 Initial Exam: 10/14/20 By First Ultrasound Exam: 10/20/20 Final AKUA: 10/20/20 OB PROBLEM LIST: RH NEGATIVE. Hypothyroidism. BMI - 53. Limit weight gain. Clear Drape for EPDS on 02/28/2020 = 4. GDMA2 , glyburide Genetic and carrier screening declined. 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 Illicit Drug Use - denies use of street drugs Sexual Activity - Residence - owns a home Place of - [place], [place] Hours Worked - 40 Spouse-Sig Other Name - Lyudmila Spouse-Sig Other 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 - [employer]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 Spouse-Sig Other Phone No - [phone] Children Name(s) - Ivana Sahni PRIOR DELIVERY HISTORY DEL DATE GEST LAB WT LB WT OZ TYPE ANES LABOR TX Aug 30 41 14 8 12 C-Sec Epidural No 15 Apr 18 39 0 7 8 C-Sec Spinal No ANTEPARTUM FLOW CHART VISIT GE RTC FU F F [place] U U DATE WK MD WKS HT PN HR M SS BP ED WT [place] GL D EF ST __ ____ ___ __ __ ___ __ __ __ ___ __ __ __ ___ __ 27 Sep SHM + 130/82 sl 309 tr - Sep SHM 1 37 V + + 120/72 0 304 tr - Sep 36 SHM 1 36 V + + 134/82 sl 302 tr - Sep 35 SHM 1 36 V + + 134/82 0 303 tr - Aug 33 SHM 2 35 T + + 132/82 0 299 - - Aug SHM 2 33 V + + 130/78 sl 300 tr - August 12 SHM 2 31 ? + + 122/76 0 299 tr - 11 August 10 SHM 2 30 + + 130/80 299 tr - Jul 07 JM 4 23 - + + 124/72 0 296 tr - Jun 02 JM 4 19 - on + 138/70 sl 296 ne ne May 01 SHM 4 + ? 114/70 0 298 tr - 15 Mar 27 SHM 4 on US 124/76 0 301 - - ANTEPARTUM NOTE(S): Oct 10 2020: anxious Oct 03 2020: packet provided Sep 26 2020: GBS today Sep 19 2020: blood sugars for review, GBS next visit Sep 05 2020: doing well, follow up u/s today, BS with appt Aug 22 2020: see note Aug 08 2020: see note Jul 25 2020: see note Jun 29 2020: see note May 29 2020: US today Apr 28 2020: feeling well. AM Shane 15 2021: COMPREHENSIVE ANTEPARTUM NOTE(S): Oct 10 2020: Zuleika is here for final visit. C/S planned for Friday. Feeling well overall but notes a little anxious about upcoming C/S. Blood sugars with an elevated fasting and 2 elevated postprandiol. LMT Oct 03 2020: GBS neg reviewed. Preop consents reviewed and signed. Pt on the fence regarding tubal sterilization. Reviewed permanence, risk for regret, as well as benefits. May consider b/l partial salpingectomy at pt preference, however pt understands should plan for this to be permanent. Also discussed male sterilization and reversible contraceptives as alternative. Discussed risks, benefits, indica Oct 03 2020: Zuleika is here for visit. Advised GBS negative. PAT packet reviewed and consents are signed. Still indecisive regarding tubal sterilization. Discouraged proceeding with sterilization if she is not comfortable with that decision. Blood sugars copied for review with 2 elevated blood sugars. T Sep 26 2020: Debo is here for visit. Considering Paragard IUD, likely around 6 weeks . Considered placement after C/S but had discussed prior with Dr WHITEHEAD and plan this more likely at visit. LARC declined. Blood sugars copied. GBS today. LMT Sep 19 2020: US BPP 8/8, MVP 6.3. Growth, BPP at next visit. Blood sugars at target - 2 days increase last week coinciding with URI. Preeclampsia, labor, Fm precautions. Sep 05 2020: FS improved, rare hyperglycemia. Continue glyburide. BPP 8/8 today. PTL, FM precautions. Discussed skin to skin. Aug 23 2020: US EFW 1852g (48th%), HC/AC 1.06, MICA 17.8cm, BPP 8/8. Plan for weekly BPP and repeat growth in 4 weeks. Blood sugars at target 81% with fasting blood sugars improved. Will continue Glyburide 7.5mg qhs. PTL precautions. Discussed L visitor policy. Pt considering tubal sterilization further, will add to surgical posting. Aug 22 2020: Zuleika is here for visit. She is doing well except that she has noticed an increase in gina cohn ctx's. Reports that they usually go away if she rests. She does have occ palpitation and had an episode on Friday while showering that last a little longer and felt lightheaded afterwards. B/P was slightly elevated and sx resolved within about an hour. Otherwise they are usually very r Aug 08 2020: Zuleika is here for visit. She is doing well. Feeling now. Starting to feel a different mvmt pattern and discussed that this is pretty normal with changing/maturing nervous system. Keep track of what this new pattern is. Copy of blood sugars for Dr WHITEHEAD review. LMT Aug 08 2020: Fasting blood sugars improved, but not yet at target. Increase Glyburide to 7.5mg qhs - taking 5mg and 2.5mg tab. Growth and BPP at next visit. Reviewed measures to monitor and reduce hypoglycemia. Discussed circumcision r/b, pt considering. Jul 25 2020: Zuleika is here for visit. She is without complaint or concern. Reviewed blood sugars and copied these down for Dr WHITEHEAD. She has done fastings but sometimes 1 hr or 2 hrs after meals. Weekends only does fastings. Will review further with Dr WHITEHEAD. CBC and antibody screen drawn today and Rhogam given. LMT Jul 25 2020: Fasting blood sugars elevated. Discussed insulin vs. Glyburide. Will increase Glyburide to 5mg hs. EFW 85th%, Anatomy completed today and wnl. PTL, ROM, FM precautions. Discussed PPBC, consider tubal sterilization. Reviewed tubal irreversibility, r/b, as well as available alternatives including male sterilization. Jun 29 2020: Zuleika is here for visit. She has copy of blood sugars and mostly doing fastings only. She did have some high numbers when she had a sinus infection. States job is not easy for her to get the 2 hrs done. Rh negative and will need Rhogam at 28 weeks. LMT Jun 29 2020: 23wk, GDMA2 is only taking Fasting 100-110. Discussed taking insulin including its better and outcomes but pt declines at this time. Did seem more open to it this conversation. Desires to increase Glyburide to 2.5mg qhs. Pt to take Fasting and PP. Hypothyroid, for labs with rhogam at 28wks. For repeat c/s. For u/s to complete anatomy views next visit. JM May 29 2020: Merlyn is here with SO for PNV. US today. States she is feeling much better as nausea has subsided some. Slight swelling noted in lower legs. Has started to feel FM as of last week. Urine neg/neg. LSS Merlyn states that she left her BS record in the car. Advised to get it and bring it back in before she leaves. She agreed but did not do so. LSS May 29 2020: 19wk Anatomy today with very limited views but overal AGA. Based on BMI would repeat u/s for views at 28wks. GDMA2, did not bring blood sugars. Per pt Fasting 95-100 2hr PP 80-110. Dr. WHITEHEAD started her on Glyburide 1.25mg qhs but pt did not take at all. Educated on fasting blood sugars and risks, educated on safety of insulin vs safety of glyburide. Pt agreeable to start Glyburide 1.25mg qhs. Apr 28 2020: TFTs today. Pt plans to obtain COVID19 vaccine after 20wga. Discussed movement. Starting new job closer to home later this month. Home fasting sugars 100-105, postprandials at target. Has difficulty with evening snack as she is not hungry. Will start Glyburide 1.25mg qhs. Mar 31 2020: Zuleika is her for 11 wk PNV. Reports that she might feel some FM but not sure. She is feeling okay. No edema present today. Glucose log copied. Medications and allergies reviewed. No complaints or concerns expressed today. LJW Mar 31 2020: c/o nausea with decreased appetite. She is using raiel supplements with no recent relief. Will trial Vitamin B6, unasom. Monitor weight loss - as has recent 10lb weight loss. Will plan for COVID19 vaccine after 20wga, pt to obtain at work. Denies hyperthyroid sx on new dose of Synthroid - will plan rpt labs in 2-4 weeks. US with AKUA 10/20/20, not c/w LMP. 11wga today. Reviewed right complex ovarian Mar 30 2020: TELEHEALTH NOB VISIT, DURATION 25 MINUTES. Debo is a 29 year old with an AKUA of 10/14/2020. Debo and her , Lyudmila, have two young daughters at home; both were delivered by C/S. Past history updated. Debo states that she had GDM with he second daughter, which was diet controlled until her last two weeks of , when she was put on Glipizide. She has been checking REVIEW OF SYSTEMS: GENERAL - Denies fever, or chills SKIN - Denies rash, new skin lesions, or change in moles EYES - Denies blurred vision, or change in visual acuity EARS - Denies ear pain, or difficulty hearing NOSE - Denies nasal congestion, discharge, or bleeding MOUTH - Denies sore throat, or difficulty swallowing NECK - Denies pain or swelling RESPIRATORY - Denies shortness of breath, cough, wheezing CARDIOVASCULAR - Denies palpitations, chest pain, orthopnea, PND, peripheral edema, syncope or claudication GASTROINTESTINAL - Denies nausea, vomiting, diarrhea, constipation, Denies abdominal pain, melena and or bright red blood GENITOURINARY - Denies dysuria, frequency of urination, urgency, or hesitancy MUSCULOSKELETAL - Denies joint or muscle pain, or back pain NEUROLOGICAL - Denies localized numbness, weakness, or tingling PSYCHIATRIC - Denies depression, anxiety, substance abuse or suicide attempts ENDOCRINE - Denies heat or cold intolerance, weight loss or gain, increasing thirst HEMATO-IMMUNOLOGIC - Denies easy bruising, bleeding, oral ulcerations or recurre nt infections GENETICS SCREENING: Age 35+ years: No Thalassemia: No Neural Tube Defect: No Down Syndrome: No BART-SACHS: No Sickle Cell Disease: No Hemophilia: No Musc. Dystrophy: No Cystic Fibrosis: No-declines screening Abraham Chorea: No Mental Retardation: No Fragile X: No Other genetic: No Other defects: No SABs/still births: No Drugs since LMP: Yes Comments: FOB mother, [place] her- MS INFECTION HISTORY: High risk AIDS: No High risk Hepatitis: No Exposed to TB: No Exposed to Herpes: No Rash/viral illness since LMP: No History of STD: No MENSTRUAL HISTORY: *Menses Amount/Duration: 8-10Menses Regularity: regularFrequency: monthlyMenarche (Age Onset): 14* PAST SUMMARY: PARITY: 1. Total Pregnancies............ 3 2. Full Term Pregnancies........ 2 3. Premature.................... 0 4. Abortions - Induced.......... 0 5. Abortions - Spontaneous...... 0 6. Ectopics..................... 0 7. Multiple Births.............. 0 8. Living Children.............. 2 PAST #1: Date of :.................. 08/22/15 Gestation Weeks:................ 41 Length of labor(hours):......... 14 Sex:............................ F Weight-lbs:............... 8 Weight-oz:................ 12 Type of Delivery:............... C-Sect Type of Anesthesia:............. Epidural Place of Delivery:.............. [place] Treatment of Labor?:.... No Comment: FTP. SEE CHARTING PAST #2: Date of :.................. 05/01/17 Gestation Weeks:................ 39 Length of labor(hours):......... 0 Sex:............................ F Weight-lbs:............... 7 Weight-oz:................ 8 Type of Delivery:............... C-Sect Type of Anesthesia:............. Spinal Place of Delivery:.............. [place] Treatment of Labor?:.... No Comment: GDM PHYSICAL EXAMINATION General Appearence: 30 yo female in no acute distress Vital Signs: AF, VSS Heart: RRR without rubs or gallops Lungs: CTA x 2 Breasts: deferred Abdomen: gravid Pelvis: Cervix: Presentation: cephalic Station: Fetus: Size: AGA Movement: present Heart: present LAB TEST(S) ORDERED SINCE:01/24/20 03/06/2020 VITAMIN D,25 HYDROXY 03/03/2020 PAP I-G W/RFX HRHPV-APTIMA 03/02/2020 RPR 03/02/2020 CHLAMYDIA/GC ELISA APTIMA 03/01/2020 URINE DRUG SCREEN (VISTA) 03/01/2020 URINALYSIS, ROUTINE (DIPSTICK) 03/01/2020 THYROID STIM HORMONE (TSH) 03/01/2020 T4 FREE DIRECT 03/01/2020 RUBELLA IGG 03/01/2020 T AND S-NO CHARGE W/PNP 03/01/2020 HIV - [facility] 03/01/2020 HEPATITIS C ANTIBODY 03/01/2020 HEPATITIS B SURFACE ANTIGEN 03/01/2020 FREE T3 03/01/2020 CBC W/DIFF, AUTOMATED 10/13/2020 TYPE AND SCREEN 10/13/2020 COVID 19 AG RAPID (RN COLLECT) 10/13/2020 CBC W/DIFF, AUTOMATED 10/13/2020 BEDSIDE GLUCOSE 09/29/2020 RULE OUT BETA STREP (GRP. B) 07/25/2020 TYPE AND SCREEN 07/25/2020 THYROID STIM HORMONE (TSH) 07/25/2020 T4 FREE DIRECT 07/25/2020 CBC-COMPLETE BLOOD CNT NO DIFF 05/05/2020 THYROID STIM HORMONE (TSH) 05/05/2020 T4 FREE DIRECT 05/05/2020 FREE T3 == ==== Order Observation Description Value Ref_Range A* Site == ==== S [facility]~[address] [place], [address]~ TYPE AND SCRE AB SCREEN GEL NEGATIVE ML COVID 19 AG RAP NOTE SUAREZ CBC W/DIFF, AUT NOTE SUAREZ CBC W/DIFF, AUT WBC 10.4 K/mm3 4.4-11.0 ML CBC W/DIFF, AUT RBC 4.08 M/mm3 4.2-5.4 L ML CBC W/DIFF, AUT HGB 11.3 g/dL 12.0-15.0 L ML CBC W/DIFF, AUT HCT 35.4 37-47 L ML CBC W/DIFF, AUT MCV 86.8 fL 81-99 ML CBC W/DIFF, AUT MCH 27.7 pg 27.0-32.0 ML CBC W/DIFF, AUT MCHC 31.9 g/dL 32-36 L ML CBC W/DIFF, AUT RDW CV 14.1 11.6-14.6 ML CBC W/DIFF, AUT RDW SD 44.2 fl 35.1-43.9 H ML CBC W/DIFF, AUT PLT 303 K/mm3 150-450 ML CBC W/DIFF, AUT MPV 9.9 fl 6.2-12.0 ML CBC W/DIFF, AUT NEUT% 73.0 47-70 H ML CBC W/DIFF, AUT LY% 19.4 19-41 ML CBC W/DIFF, AUT MONO% 5.9 0-10 ML CBC W/DIFF, AUT EO% 0.6 0-5 ML CBC W/DIFF, AUT BASO% 0.2 0-1 ML CBC W/DIFF, AUT IG% 0.900 0.0-0.9 ML IG% - Immature Granulocytes (promyelocytes, myelocytes and metamyelocytes) > 1% indicates that a LEFT SHIFT is Present. CBC W/DIFF, AUT ABSOLUTE NEUT 7.6 X10 3/uL 2.0-7.7 ML CBC W/DIFF, AUT ABSOLUTE LYMPH 2.02 X10 3/uL 0.83-4.51 ML CBC W/DIFF, AUT NUCLEATED RBC 0 0-5 ML BEDSIDE GLUCOSE NOTE SUAREZ BEDSIDE GLUCOSE FINGERSTICK GLU 106 mg/dL 70-110 POCL MANAGEMENT OF PATIENT CARE PER NURSING PROTOCOL RULE OUT BETA S NOTE SUAREZ T4 FREE DIRECT NOTE SUAREZ T4 FREE DIRECT T4 FREE DIRECT 1.01 ng/dL 0.76-1.46 ML THYROID STIM HO NOTE SUAREZ THYROID STIM HO TSH 2.42 uIU/mL 0.358-3.74 ML PN [facility]~[address] [place], [address]~ TYPE AND SCRE AB SCREEN GEL NEGATIVE ML CBC-COMPLETE BL NOTE SUAREZ CBC-COMPLETE BL WBC 12.3 K/mm3 4.4-11.0 H ML CBC-COMPLETE BL RBC 4.35 M/mm3 4.2-5.4 ML CBC-COMPLETE BL HGB 12.1 g/dL 12.0-15.0 ML CBC-COMPLETE BL HCT 37.5 37-47 ML CBC-COMPLETE BL MCV 86.2 fL 81-99 ML CBC-COMPLETE BL MCH 27.8 pg 27.0-32.0 ML CBC-COMPLETE BL MCHC 32.3 g/dL 32-36 ML CBC-COMPLETE BL RDW CV 13.5 11.6-14.6 ML CBC-COMPLETE BL RDW SD 41.9 fl 35.1-43.9 ML CBC-COMPLETE BL PLT 386 K/mm3 150-450 ML CBC-COMPLETE BL MPV 9.5 fl 6.2-12.0 ML T4 FREE DIRECT NOTE SUAREZ T4 FREE DIRECT T4 FREE DIRECT 1.12 ng/dL 0.76-1.46 ML THYROID STIM HO NOTE SUAREZ THYROID STIM HO TSH 2.04 uIU/mL 0.358-3.74 ML FREE T3 NOTE SUAREZ FREE T3 FREE T3 2.2 pg/mL 2.18-3.98 ML VITAMIN D,25 HY NOTE SUAREZ VITAMIN D,25 HY VITAMIN D 25-OH 24.4 ng/mL ML Vitamin D 25(OH) Status Range Deficiency <20 ng/mL (50nmol/L) Insufficiency 20 - 30 ng/mL (50 - 75 nmol/L) Sufficiency 30 - 100 ng/mL (75 - 250 nmol/L) Toxicity >100 ng/mL (>250 nmol/L) RPR NOTE SUAREZ RPR RPR NONREACTIVE NONREACTIVE ML Reason for Type AND Screen/Red Cells: Surgery? N [facility]~[address] [place], [address]~ T AND BLOOD TYPE GEL O NEGATIVE N ML T AND AB SCREEN GEL NEGATIVE N ML HEPATITIS C ANT NOTE SUAREZ HEPATITIS C ANT HEPATITIS C AB Non-Reactive Nonreactive ML Non Reactive: < 0.8 Equivocal: >/= 0.8 to < 1.0 Reactive: >/= 1.0 The CDC recommends that a reactive/equivocal HCV antibody result be followed up by the HCV Nucleic Acid Amplification test ([id number]) HEPATITIS B TOY NOTE SUAREZ HEPATITIS B TOY HEPB SURFACE AG Non-Reactive Nonreactive ML HIV - WCH NOTE SUAREZ HIV - WCH HIV - [facility] Non-Reactive Nonreactive ML RUBELLA IGG NOTE SUAREZ RUBELLA IGG RUBELLA IGG Reactive Nonreactive ML Antibody Results Interpretation of Immune Status Non Reactive Presumed Non-Immune Equivocal Equivocal Reactive Presumed Immune URINALYSIS, ROU NOTE SUAREZ URINALYSIS, ROU COLOR Yellow Yellow ML URINALYSIS, ROU CLARITY Sl. Cloudy Clear ML URINALYSIS, ROU GLUCOSE, UR Normal mg/dl Normal ML URINALYSIS, ROU BILIRUBIN URINE Negative mg/dL Negative ML URINALYSIS, ROU KETONE UR Negative mg/dl Negative ML URINALYSIS, ROU SP.GR. DIPSTX 1.005 1.002-1.030 ML URINALYSIS, ROU PH UR 7.0 5.0 - 8.0 ML URINALYSIS, ROU PROT DIPSTX Negative mg/dl Negative ML URINALYSIS, ROU UROBILI Normal mg/dl Normal ML URINALYSIS, ROU NITRITE UR Negative Negative ML URINALYSIS, ROU OCCULT BLOOD-UR Negative /ul Negative ML URINALYSIS, ROU LEUK ESTERASE Negative /ul Negative ML T4 FREE DIRECT NOTE SUAREZ T4 FREE DIRECT T4 FREE DIRECT 1.13 ng/dL 0.76-1.46 ML THYROID STIM HO NOTE SUAREZ THYROID STIM HO TSH 2.61 uIU/mL 0.358-3.74 ML FREE T3 NOTE SUAREZ FREE T3 FREE T3 2.3 pg/mL 2.18-3.98 ML URINE DRUG SCRE NOTE SUAREZ URINE DRUG SCRE TO BE CONFIRMED ML CONFIRMATORY TESTING FOR ALL POSITIVE URINE DRUG SCREEN RESULTS WILL ONLY BE SENT OUT UPON PHYSICIAN ORDER. VISTA Urine Drug Screen methods provide only preliminary analytical test results. A more specific alternate chemical method must be used in order to obtain a confirmed analytical result. Gas chromatography/mass spectrometery (GC/MS) is the preferred confirmatory method. Clinical consideration and professional judgement should be applied to any drug of abuse test result, particularly when preliminary positive results are used. URINE TCA TESTING MUST BE ORDERED SEPARATELY. USE TEST MNEMONIC: UTCA URINE DRUG SCRE VISTA UDS PH 6 ML URINE DRUG SCRE AMPHETAMINES NEGATIVE <1000 ng/mL ML URINE DRUG SCRE BARBITIURATES NEGATIVE < 200 ng/mL ML URINE DRUG SCRE BENZODIAZIPINE NEGATIVE < 200 ng/mL ML URINE DRUG SCRE COCAINE NEGATIVE < 300 ng/mL ML URINE DRUG SCRE ECSTACY NEGATIVE < 500 ng/mL ML URINE DRUG SCRE METHADONE NEGATIVE < 300 ng/mL ML URINE DRUG SCRE OPIATES NEGATIVE < 300 ng/mL ML URINE DRUG SCRE PCP NEGATIVE < 25 ng/mL ML URINE DRUG SCRE THC NEGATIVE < 50 ng/mL ML CBC W/DIFF, AUT NOTE SUAREZ CBC W/DIFF, AUT WBC 11.1 K/mm3 4.4-11.0 H ML CBC W/DIFF, AUT RBC 4.83 M/mm3 4.2-5.4 ML CBC W/DIFF, AUT HGB 13.0 g/dL 12.0-15.0 ML CBC W/DIFF, AUT HCT 41.8 % 37-47 ML CBC W/DIFF, AUT MCV 86.5 fL 81-99 ML CBC W/DIFF, AUT MCH 26.9 pg 27.0-32.0 L ML CBC W/DIFF, AUT MCHC 31.1 g/dL 32-36 L ML CBC W/DIFF, AUT RDW CV 13.7 % 11.6-14.6 ML CBC W/DIFF, AUT RDW SD 43.5 fl 35.1-43.9 ML CBC W/DIFF, AUT PLT 362 K/mm3 150-450 ML CBC W/DIFF, AUT MPV 10.1 fl 6.2-12.0 ML CBC W/DIFF, AUT NEUT% 77.6 % 47-70 H ML CBC W/DIFF, AUT LY% 17.8 % 19-41 L ML CBC W/DIFF, AUT MONO% 3.4 % 0-10 ML CBC W/DIFF, AUT EO% 0.5 % 0-5 ML CBC W/DIFF, AUT BASO% 0.3 % 0-1 ML CBC W/DIFF, AUT IM GRAN % 0.400 % 0.0-0.9 ML IG% - Immature Granulocytes (promyelocytes, myelocytes and metamyelocytes) > 1% indicates that a LEFT SHIFT is Present. CBC W/DIFF, AUT ABSOLUTE NEUT 8.6 X10 3/uL 2.0-7.7 H ML CBC W/DIFF, AUT ABSOLUTE LYMPH 1.97 X10 3/uL 0.83-4.51 ML CBC W/DIFF, AUT NRBC, FLAGGED 0 % 0-5 ML PAP I-G W/RFX H NOTE SUAREZ PAP I-G W/RFX H DIAGN Comment . LC NEGATIVE FOR INTRAEPITHELIAL LESION OR MALIGNANCY. PAP I-G W/RFX H ADEQ Comment . LC Satisfactory for evaluation. Endocervical and/or squamous metaplastic cells (endocervical component) are present. PAP I-G W/RFX H PERFORM Comment . LC Pearl Sim, [employer] Worker (ASCP) PAP I-G W/RFX H TEST METHOD Comment . LC This liquid based ThinPrep(R) pap test was screened with the use of an image guided system. PAP I-G W/RFX H COMM . . PAP I-G W/RFX H PAPSMR Comment . LC The Pap smear is a screening test designed to aid in the detection of premalignant and malignant conditions of the uterine cervix. It is not a diagnostic procedure and should not be used as the sole means of detecting cervical cancer. Both false-positive and false-negative reports do occur. PAP I-G W/RFX H HPV RFLX Comment . The HPV DNA reflex criteria were not met with this specimen result therefore, no HPV testing was performed. Performed at: [address] [id number] [employer] Inspector: Janelle Koroma MD, Phone: [phone] CHLAMYDIA/GC NA NOTE SUAREZ CHLAMYDIA/GC NA CHLAMY,NUC ACID Negative Negative LC CHLAMYDIA/GC NA GC BY NUC ACID Negative Negative LC Performed at: =[address] [id number] [employer] Inspector: Janelle Koroma MD, Phone: [phone] O NEGATIVE *Negative results from patients with symptom onset beyond five days should be treated as presumptive and confirmed by a molecular assay if clinically necessary. Negative results should not be used as the sole basis for treatment or for patient management. COVID 19 AG RAPID (RN COLLECT) *Positive results do not differentiate between SARS-CoV and SARS-CoV-2. If differentation of the specific SARS virus is desired an additional sample and an additional order is required. COVID 19 AG RAPID (RN COLLECT) * This test has not been FDA cleared or approved; the test has been authorized by FDA under an Emergency Use Authorization (EAU) for use by laboratories certified under CLIA that meet the requirements to perform moderate, high, or waived complexity tests. COVID 19 AG RAPID (RN COLLECT) Normal Reference Range: Negative SARS-CoV-2 (COVID 19) Negative RAPID METHOD Quidel Sumi Analyzer ARPAN, lateral flow immunofluorescent Group B Beta Streptococcus is not isolated. O NEGATIVE Assessment & Plan (1) 39 weeks gestation of : PLAN: Proceed with repeat section as planned and ParaGard IUD placement (2) Gestational diabetes:
[2020-10-13] MEDS: COPPER IUD 1 EACH INTRA-UTER (08:25)
--- NOTE | 2020-10-13 09:00 | EX.PCM.OBRPT ---
Assessment & Plan (1) 39 weeks gestation of : (2) Gestational diabetes: (3) delivery delivered: (4) Encounter for insertion of intrauterine contraceptive device (IUD) for non-contraception indication: Maternal Data Information AKUA Calculator Estimated Delivery Date Method Current WG Current Estimate 10/20/20 Manual 39w 1d Details Operative Information Date of Procedure: 10/13/20 Pre-Operative Diagnosis: 1. 39 weeks gestation 2. Gestational diabetes - medication controlled 3. Prior section x2 4. Request ParaGard IUD placement Post-Operative Diagnosis: 1. 39 weeks gestation 2. Gestational diabetes - medication controlled 3. Prior section x2 4. Request ParaGard IUD placement Findings Description of Procedure: The patient was taken to the operating room and spinal analgesia was administered. She is placed in a dorsal supine position with left lateral tilt. The perineum and abdomen were prepped and draped in sterile fashion. And the spinal was found to be adequate. A Pfannenstiel incision was made using a scalpel and brought down to incise the subcutaneous tissue and rectus fascia at the midline. Subcutaneous tissue was bluntly dissected off the fascia laterally. The fascial incision was dissected laterally and cephalad using curved Kaur scissors. The superior leaflet of the rectus fascia was grasped using Lucia clamps and bluntly dissected and sharply dissected from the underlying rectus muscle. In a similar fashion the inferior rectus fascia was dissected from the underlying muscle. The rectus muscles were fibrotic and fused. The muscles were dissected at the midline sharply and bluntly bluntly however were unable to be significantly due to's scarring. The peritoneum was identified and entered [sharply] and again attempted to separate the rectus muscles further without significant access to the abdominal cavity. I proceeded with a Maylard incision transecting the medial rectus abdominis muscles bilaterally and subsequent blunt expansion of the intra-abdominal incision allowed good access to the abdominal cavity. Notably there were peritoneal adhesions covering the adnexa bilaterally as well as the upper fundus to the anterior abdominal wall, and the lower uterine segment to the anterior abdominal wall. The lower uterine segment peritoneal adhesions were dissected bluntly and an Juan O retractor was introduced into the abdomen and retained. the vesicouterine peritoneal fold identified. The fold was incised and a bladder flap created. Bladder blade was then repositioned to the abdomen. A low transverse hysterotomy was made using the [Metzenbaum scissors] to level of the membranes. The hysterotomy was extended bluntly cephalad and caudad. The membranes were then ruptured revealing clear fluid. The head was elevated and brought to the level of the hysterotomy and the infant delivered revealing vigorous [male] infant. The cord was doubly clamped and cut after 60 seconds. The infant was passed to awaiting [nursery personnel]. The placenta was [expressed] from the uterus and appeared intact on inspection. The uterus was cleared of debris. The ParaGard was loaded into the applicator and released at the fundus. The IUD strings were gently guided towards the cervix. The hysterotomy was then repaired using 0 strata fix running lock suture. A second imbricating layer was also placed for additional hemostasis. The bladder blade was removed. The anterior cul-de-sac was cleared of debris. The peritoneum was reapproximated using 2-0 Vicryl running suture. The rectus fascia was closed using 0 Vicryl running suture. The subcutaneous tissue was reapproximated using 2-0 Vicryl in 2 layers. The skin was closed using 4-0 Monocryl subcuticularly by the LAB SPECIALIST under my supervision. Mepilex occlusive dressing was placed over the incision. The fundus was firm. The patient was then transferred to the recovery room without complication. Sponge, instrument, and needle counts were correct ?2. Presentation: Positive for Vertex Amniotic Membrane Rupture Type: Artificial Amniotic Fluid Description: Clear Placental Delivery Description: Spontaneous Placenta Disposition: [facility] Cord Vessel Description: 3 Vessels Cord Entanglement: Around neck x 1, loose Nuchal Cord Compression: Without compression A Gender: Male (1 minute): 8 (5 minute): 9 Delayed Cord Clamping: Yes Admit VTE Documentation VTE Present on Admission: No VTE Mechan Device Prophylaxis: SCD's VTE Pharm Prophylaxis Ordered: Yes
[2020-10-13] MEDS: Oxytocin 30 units/NS 500 ml 30 UNITS/500 ML IV.SOLN 167 UNITS IV (09:15)
[2020-10-13] MEDS: Ketorolac 30 MG/ML Syringe IV ×3 (09:42→22:31)
[2020-10-13 11:41] LABS: Bedside Glucose 131 mg/dL (70-110)
[2020-10-13] MEDS: Senna/Docusate Sodium 1 Tablet PO (12:08)
[2020-10-13] MEDS: Lactated Ringers 1,000 ML 100 ML IV (12:14)
[2020-10-13] MEDS: Heparin Injection (Vial) 5,000 UNIT/ML VIAL 5000 UNIT SC ×2 (15:22→22:31)
[2020-10-13] MEDS: 0.9% Saline Lock 10 ML Syringe IV ×3 (15:22→22:32)
[2020-10-13] MEDS: Cefazolin 1 GM/50 ML BAG IV (16:54)
--- NOTE | 2020-10-13 19:46 | NURSING ---
patient missed hat, reports feeling like bladder fully emptied with void
[2020-10-14] MEDS: Acetaminophen 500 MG Tablet 1000 MG PO ×2 (00:03→06:31)
[2020-10-14] MEDS: 0.9% Saline Lock 10 ML Syringe IV (00:04)
[2020-10-14] MEDS: Cefazolin 1 GM/50 ML BAG IV (00:04)
[2020-10-14 00:10] VITALS: BP 98/47; PULSE 81; RESP 18; TEMP 36.6
[2020-10-14 04:25] VITALS: BP 87/43; PULSE 78; RESP 18; TEMP 36.6
[2020-10-14] MEDS: Ibuprofen 600 MG Tablet PO ×2 (04:38→10:09)
[2020-10-14 04:56] LABS: Bedside Glucose 138 mg/dL (70-110)
[2020-10-14] MEDS: Heparin Injection (Vial) 5,000 UNIT/ML VIAL 5000 UNIT SC (06:31)
[2020-10-14] MEDS: Levothyroxine 100 MCG Tablet PO (06:31)
[2020-10-14 06:35] LABS: Hematocrit 30.8 % (37-47); Hemoglobin 9.7 g/dL (12.0-15.0); Mean Corp Hgb Conc 31.5 g/dL (32-36); Mean Corpuscular Hgb 27.6 pg (27.0-32.0); Mean Corpuscular Volume 87.5 fL (81-99); Mean Platelet Vol. 9.6 fl (6.2-12.0); Platelet Count 259 K/mm3 (150-450); RBC Distribution Width CV 14.5 % (11.6-14.6); RBC Distribution Width SD 46.1 fl (35.1-43.9); Red Blood Count 3.52 M/mm3 (4.2-5.4); White Blood Count 10.3 K/mm3 (4.4-11.0)
--- NOTE | 2020-10-14 07:14 | PCM.PN.OB ---
Subjective Subjective No issues overnight. Reports minimal pain. She is out of bed and ambulating without difficulty. Voiding. Passing flatus and had a bowel movement yesterday. She tolerates a regular diet without nausea and vomiting. Denies heavy lochia. Objective Data Objective Data Vital Signs: Vital Signs Temp Pulse Resp BP Pulse Ox 97.9 F 78 18 87/43 L 97 10/14/20 04:25 10/14/20 04:25 10/14/20 04:25 10/14/20 04:25 10/13/20 19:48 Oxygen Delivery Method Room Air Weight: 141 kg Body Mass Index (BMI) 51.7 Intake & Output: Intake and Output for Last 24 Hours 10/12/20 10/13/20 10/14/20 23:59 23:59 23:59 Intake Total 3171.67 / 3171.67 50 / 50 Output Total 2850 / 2850 Balance 321.67 / 321.67 50 / 50 Lab / Micro Data Result Diagrams: 10/14/20 06:25 Labs: Laboratory Results - last 24 hr 10/13/20 11:36: POC Glucose 131 H 10/14/20 04:46: POC Glucose 138 H 10/14/20 06:25: WBC 10.3, RBC 3.52 L, Hgb 9.7 L, Hct 30.8 L, MCV 87.5, MCH 27.6, MCHC 31.5 L, RDW Std Deviation 46.1 H, RDW Coeff of Mandy 14.5, Plt Count 259, MPV 9.6 Micro: Microbiology 10/13/20 05:45 Mucosa - Nose SARS-CoV-2 Antigen (Rapid) - Final Physical Exam Const alert, oriented x3 and no apparent distress Resp normal respiratory effort, normal air movement and clear to auscultation bilaterally Cardio regular rate, regular rhythm, S1 normal heart sound and S2 normal heart sound GI normal to inspection, nondistended, normoactive bowel sounds, soft to palpation, non-tender and non-distended Manual OB Exam: other lochia scant Uterus Palpation: uterus fundus firm Extremity no calf tenderness Assessment & Plan (1) delivery delivered: PLAN: Breast and bottlefeeding Rh-, infant A neg also Routine postoperative care Consider DC home later today pending infant discharge plan (2) Gestational diabetes: QUALIFIERS: Gestational diabetes mellitus control: oral hypoglycemic-controlled Trimester: third trimester Qualified Code(s): O24.415 - Gestational diabetes mellitus in , controlled by oral hypoglycemic drugs PLAN: Fasting glucose this morning
--- NOTE | 2020-10-14 07:32 | PCM.DC ---
Discharge Instructions Diet Discharge Diet: No restrictions Activity Discharge Activity: Return to Normal Activity and May Shower May resume sexual activity in: 4-6 weeks Lifting Restrictions: 10 lb Dressing / Incision Call your doctor if you observe: Using more than 1 pad per hour, Shortness of breath, Chest pain, Calf discomfort, Uncontrolled pain and - (Persistent or severe headache) Suture Line Care: Avoid Pulling/Pushing Remove Dressing in: 4 days Cleanse incision/area with: Soap & Water Follow Up Care Please Follow Up With: Kia Murcia MD Test Results: Test results from this visit will be discussed in further detail at your follow-up appointment, if applicable. Discharge Plan Admission Admit Date/Time: 10/13/20 05:00 Primary Reason for Your Visit: section, Paragard IUD placement Attending Provider: Kia Murcia Primary Care Provider: Dimitri Lyon Instructions Patient Instructions: After a Discharge Orders/Prescriptions Prescriptions: New ibuprofen 600 mg Tablet 600 mg PO Q8H PRN PRN (Reason: pain) Qty: 30 RF: 0 Continued vit,[id number] 1 TABLET tablet 1 tablet PO DAILY@1200 RF: 0 levothyroxine 100 mcg tablet 100 mcg PO DAILY Qty: 90 RF: 3 Discontinued glyburide 5 mg Tablet 7.5 mg PO QHS RF: 0 Referrals / Follow Up: Dimitri Lyon MD [Primary Care Provider] - Disposition Disposition (needs filled in before D/C Order can be placed): Home, Self Care
[2020-10-14 08:22] VITALS: TEMP 36.2
[2020-10-14 08:46] VITALS: BP 97/57; PULSE 78; RESP 16; TEMP 36.4; O2SAT 96
[2020-10-14 08:46] LABS: Bedside Glucose 100 mg/dL (70-110)
[2020-10-14] MEDS: Senna/Docusate Sodium 1 Tablet PO (10:09)
== END 2020-10-14 11:45 | disposition home or self-care (01) | DRG 788 ==
PROVIDERS: Admitting Provider Obstetrics & Gynecology; PCP Internal Medicine; Visit Provider Obstetrics & Gynecology
PROC: 10D00Z1 Extraction of Products of Conception, Low, Open Approach (ICD-10-PCS; CPT 59514; principal; 2020-10-13 07:15)
DX: O34.219 Maternal care for unspecified type scar from previous cesarean delivery (principal); O24.425 Gestational diabetes mellitus in childbirth, controlled by oral hypoglycemic drugs; N85.8 Other specified noninflammatory disorders of uterus; Z3A.39 39 weeks gestation of pregnancy; Z37.0 Single live birth; O99.284 Endocrine, nutritional and metabolic diseases complicating childbirth; E03.9 Hypothyroidism, unspecified; Z79.899 Other long term (current) drug therapy; Z79.84 Long term (current) use of oral hypoglycemic drugs
CPT/HCPCS: 82962; 85025; 85027; 86850; 86900; 86901; 87426; 99218; J7120; A4216; G0378; J2405

== ENCOUNTER → 2020-11-01 10:56 | Outpatient (CLI) | payer OTHER, SELFPAY ==
[2020-11-01 12:54] LABS: Hematocrit 39.1 % (37-47); Hemoglobin 12.4 g/dL (12.0-15.0); Mean Corp Hgb Conc 31.7 g/dL (32-36); Mean Corpuscular Hgb 26.9 pg (27.0-32.0); Mean Corpuscular Volume 84.8 fL (81-99); Mean Platelet Vol. 9.9 fl (6.2-12.0); Platelet Count 436 K/mm3 (150-450); RBC Distribution Width CV 13.2 % (11.6-14.6); RBC Distribution Width SD 40.9 fl (35.1-43.9); Red Blood Count 4.61 M/mm3 (4.2-5.4); White Blood Count 7.8 K/mm3 (4.4-11.0)
[2020-11-01 13:24] LABS: ALB/GLOB Ratio 0.8 RATIO (0.9-2.4); AST(SGOT) 23 U/L (15-37); Alanine Aminotransfer ALT/SGPT 32 U/L (13-56); Albumin, Serum 3.4 g/dL (3.2-5.0); Alkaline Phosphatase 158 U/L (45-117); Anion Gap 7 (5-15); BUN 10 mg/dL (7-18); BUN/Creat Ratio 17.6 RATIO (10-20); Calcium,Total 8.9 mg/dL (8.5-10.1); Chloride 106 mmol/L (98-107); Creatinine, Serum 0.57 mg/dL (0.55-1.02); EST Glomerular Filtration Rate 132 mL/min (>60); Est Glom Filt Rate - Afr Amer 160 mL/min (>60); Free T3 2.6 pg/mL (2.18-3.98); Globulin 4.3 g/dL (2.2-4.2); Glucose 92 mg/dL (74-106); LDH 190 U/L (84-246); Potassium 4.1 mmol/L (3.5-5.1); Protein, Total 7.7 g/dL (6.4-8.2); Sodium Level 139 mmol/L (136-145); T4 Free Direct 1.06 ng/dL (0.76-1.46)
== END ==
PROVIDERS: PCP Internal Medicine; Visit Provider Obstetrics & Gynecology
DX: O13.5 Gestational [pregnancy-induced] hypertension without significant proteinuria, complicating the puerperium (principal); R51.9 Headache, unspecified; E03.9 Hypothyroidism, unspecified
CPT/HCPCS: 36415; 80053; 83615; 84439; 84443; 84481; 85027

== ENCOUNTER → 2021-02-06 | Outpatient (CLI) | payer OTHER, SELFPAY ==
[2021-02-06 16:14] LABS: Bacteria 0 SEEN /hpf (None Seen); Mucous, Urine 0 SEEN /hpf (<or=2+); White Blood Cells 0 SEEN /hpf (0-5)
[2021-02-06 16:55] LABS: Color, Urine Yellow (Yellow); Glucose, Dipstick Normal (Normal); Ketone-Dipstick Negative (Negative); Leukocyte Esterase-Dipstick Negative /ul (Negative); Nitrite-Dipstick Negative (Negative); Occult Blood-Urine 25 /ul (Negative); Protein-Dipstick Negative (Negative); Urine Bilirubin Dipstick Negative (Negative); Urine Clarity Clear (Clear); Urine Urobilinogen Normal (Normal)
[2021-02-06 17:06] LABS: Red Blood Cells-Urine 0-5 SEEN /hpf (0-5); Squamous Epithelial Cells - UA 0-5 SEEN /hpf (5-10)
== END | disposition home or self-care (01) ==
LOC: LABSPEC 16:13
PROVIDERS: PCP Internal Medicine; Referring Provider Physician Assistant; Visit Provider Physician Assistant
DX: R30.0 Dysuria (principal)
CPT/HCPCS: 81001; 87086; 87088

== ENCOUNTER → 2021-09-20 | Outpatient (CLI) | payer OTHER, SELFPAY ==
[2021-09-20 10:24] LABS: Insulin 23.6 mU/L (2.6-37.6)
[2021-09-20 10:36] LABS: Hemoglobin A1c 5.6 % (3.8-5.6)
[2021-09-20 11:25] LABS: ALB/GLOB Ratio 0.8 RATIO (0.9-2.4); AST(SGOT) 20 U/L (15-37); Alanine Aminotransfer ALT/SGPT 33 U/L (13-56); Albumin, Serum 3.4 g/dL (3.2-5.0); Alkaline Phosphatase 170 U/L (45-117); Anion Gap 5 (5-15); BUN 8 mg/dL (7-18); BUN/Creat Ratio 13.7 RATIO (10-20); Calcium,Total 8.6 mg/dL (8.5-10.1); Chloride 108 mmol/L (98-107); Cholesterol 173 mg/dL (200); Creatinine, Serum 0.58 mg/dL (0.55-1.02); EST Glomerular Filtration Rate 128 mL/min (>60); Est Glom Filt Rate - Afr Amer 155 mL/min (>60); Globulin 4.1 g/dL (2.2-4.2); Glucose 99 mg/dL (74-106); High Density Lipoprotein 41 mg/dL; Potassium 3.9 mmol/L (3.5-5.1); Protein, Total 7.5 g/dL (6.4-8.2); Sodium Level 139 mmol/L (136-145); T4 Free Direct 1.16 ng/dL (0.76-1.46); Thyroid Stim Hormone (TSH) 1.44 uIU/mL (0.358-3.74); Triglycerides 156 mg/dL; Very Low Density Lipoprotein 31 mg/dL (5-40)
== END | disposition home or self-care (01) ==
LOC: LAB 09:23
PROVIDERS: PCP Internal Medicine
DX: E66.9 Obesity, unspecified (principal); Z13.1 Encounter for screening for diabetes mellitus; Z13.220 Encounter for screening for lipoid disorders; Z13.228 Encounter for screening for other metabolic disorders; Z13.29 Encounter for screening for other suspected endocrine disorder
CPT/HCPCS: 36415; 80053; 80061; 83036; 83525; 84439; 84443; 86141

== ENCOUNTER → 2021-12-25 | Outpatient (CLI) | payer OTHER, SELFPAY ==
[2021-12-25 16:42] LABS: Absolute Lymphocyte Count 2.21 X10^3/uL (0.83-4.51); Absolute Neutrophil Count 6.3 X10^3/uL (2.0-7.7); Basophil# 0.05 X10^3/uL; Basophil% 0.6 % (0-1); Eosinophil# 0.11 X10^3/uL; Eosinophils% 1.2 % (0-5); Hematocrit 42.2 % (37-47); Hemoglobin 13.3 g/dL (12.0-15.0); Lymphocyte # 2.21 X10^3/ul (0.83-4.51); Lymphocyte % 24.4 % (19-41); Mean Corp Hgb Conc 31.5 g/dL (32-36); Mean Corpuscular Hgb 26.1 pg (27.0-32.0); Mean Corpuscular Volume 82.7 fL (81-99); Monocyte# 0.39 X10^3/uL; Monocyte% 4.3 % (0-10); NRBC Flagged by Analyzer 0 % (0-5); Neutrophil # 6.26 X10^3/uL (2.7-7.7); Neutrophil % 69.3 % (47-70); Platelet Count 407 K/mm3 (150-450); RBC Distribution Width CV 13.9 % (11.6-14.6); RBC Distribution Width SD 42.1 fl (35.1-43.9)
== END | disposition home or self-care (01) ==
LOC: BIMLAB 15:25
PROVIDERS: PCP Internal Medicine; Visit Provider Internal Medicine
DX: E03.9 Hypothyroidism, unspecified (principal)
CPT/HCPCS: 36415; 85025

== ENCOUNTER → 2023-01-02 | Outpatient (CLI) | payer BC, SELFPAY ==
[2023-01-02 15:25] LABS: Absolute Lymphocyte Count 2.25 X10^3/uL (0.83-4.51); Absolute Neutrophil Count 6.9 X10^3/uL (2.0-7.7); Basophil# 0.07 X10^3/uL; Basophil% 0.7 % (0-1); Eosinophil# 0.09 X10^3/uL; Eosinophils% 0.9 % (0-5); Hematocrit 42.2 % (37-47); Hemoglobin 12.7 g/dL (12.0-15.0); Lymphocyte # 2.25 X10^3/ul (0.83-4.51); Lymphocyte % 23.1 % (19-41); Mean Corp Hgb Conc 30.1 g/dL (32-36); Mean Corpuscular Hgb 24.9 pg (27.0-32.0); Mean Corpuscular Volume 82.6 fL (81-99); Monocyte# 0.41 X10^3/uL; Monocyte% 4.2 % (0-10); NRBC Flagged by Analyzer 0 % (0-5); Neutrophil # 6.91 X10^3/uL (2.7-7.7); Neutrophil % 70.9 % (47-70); Platelet Count 431 K/mm3 (150-450); RBC Distribution Width CV 14.5 % (11.6-14.6); RBC Distribution Width SD 43.5 fl (35.1-43.9); Red Blood Count 5.11 M/mm3 (4.2-5.4); White Blood Count 9.8 K/mm3 (4.4-11.0)
[2023-01-02 16:23] LABS: ALB/GLOB Ratio 0.7 RATIO (0.9-2.4); AST(SGOT) 20 U/L (15-37); Alanine Aminotransfer ALT/SGPT 35 U/L (13-56); Albumin, Serum 3.3 g/dL (3.2-5.0); Alkaline Phosphatase 143 U/L (45-117); Anion Gap 7 (5-15); BUN 11 mg/dL (7-18); BUN/Creat Ratio 15.1 RATIO (10-20); Chloride 108 mmol/L (98-107); Cholesterol 134 mg/dL (200); Creatinine, Serum 0.73 mg/dL (0.55-1.02); EST Glomerular Filtration Rate 98 mL/min (>60); Est Glom Filt Rate - Afr Amer 119 mL/min (>60); Globulin 4.5 g/dL (2.2-4.2); Glucose 95 mg/dL (74-106); High Density Lipoprotein 36 mg/dL; Potassium 3.9 mmol/L (3.5-5.1); Protein, Total 7.8 g/dL (6.4-8.2); Sodium Level 141 mmol/L (136-145); Thyroid Stim Hormone (TSH) 1.99 uIU/mL (0.358-3.74); Triglycerides 265 mg/dL; Very Low Density Lipoprotein 53 mg/dL (5-40)
== END | disposition home or self-care (01) ==
LOC: BIMLAB 13:53
PROVIDERS: PCP Internal Medicine; Referring Provider Internal Medicine; Visit Provider Internal Medicine
DX: Z00.00 Encounter for general adult medical examination without abnormal findings (principal); E03.9 Hypothyroidism, unspecified
CPT/HCPCS: 36415; 80053; 80061; 84443; 85025

== ENCOUNTER → 2023-05-07 | Outpatient (CLI) | payer BC, SELFPAY ==
[2023-05-07 15:27] LABS: Erythrocyte Sedimentation Rate 56 mm/hr (0-30)
[2023-05-07 15:54] LABS: Vitamin B12 477 pg/mL (211-911)
[2023-05-07 15:55] LABS: Internal QC Validated? YES +Cl - CLEAR BKGD; Pregnancy, Serum, hCG Quali. NEGATIVE Negative
[2023-05-07 16:00] LABS: Thyroid Stim Hormone (TSH) 1.92 uIU/mL (0.358-3.74)
--- OUTSIDE RECORDS SUMMARY | 2023-05-07 18:26 | XMS RPT_ITS | CCD ---
Author Name Unknown Address [address] [place] [address] Organization [facility] Care Team Providers Care Online User Experience Strategist Name Role Phone DARNELLNONI SOTO Gregory Primary Care Unavailable JERICHO HICKS Attending Unavailable Problems Problem Classification Problem Date Documented Da te Episodic/Chronic Cardiac dysrhythmias (1 source) Palpitations; Translations: [Palpitations] Onset: 05-07-2022 Episodic Conditions associated with dizziness or vertigo (1 source) Dizziness and giddiness; Translations: [Dizziness] Onset: 05-07-2022 Episodic Results Test Name Value Interpretation Reference Range Facil ity Encounters Encounter Date Encounter Type Care Provider Facility Start: 05-07-2022 End: 05-07-2022 Emergency department patient visit LEONARDOCHRISTIANNE Gregory PATRICKCHARLES Facility:[facility] Payers Date Payer Category Payer Unknown [id number] Summary Purpose Family History No Family History Records FoundNo Family History Records FoundNo Family History Records Found Advance Directives No Advanced Directives Records FoundNo Advanced Directives Records FoundNo Advanced Directives Records Found Additional Source Comments INFORMATION SOURCE (unrecogn ized section and content) DATE CREATED AUTHOR AUTHOR'S ORGANIZ ATION 04/29/2019 [facility] DATE CREATED AUTHOR AUTHOR'S ORGANIZ ATION 05/12/2022 [facility] FOR RECORDS PERTAINING TO PATIENTS WHO ARE OR HAVE BEEN ENROLLED IN A CHEMICAL DEPENDENCY/SUBSTANCEABUSE PROGRAM, SOME INFORMATION MAY BE OMITTED. This clinical summary was aggregated from multiple sources. Caution should be exercised in using it in the provision of clinical care. This summary normalizes information from multiple sources, and as a consequence, information in this document may materially change the coding, format and clinical context of patient data. In addition, data may be omitted in some cases. CLINICAL DECISIONS SHOULD BE BASED ON THE PRIMARY CLINICAL RECORDS. [facility]. provides no warranty or guarantee of the accuracy or completeness of information in this document.
[2023-05-08 11:41] LABS: Rheumatoid Factor < 10.0 IU/mL (<15)
[2023-05-08 15:59] LABS: ALB/GLOB Ratio 0.8 RATIO (0.9-2.4); AST(SGOT) 26 U/L (15-37); Alanine Aminotransfer ALT/SGPT 34 U/L (13-56); Albumin, Serum 3.6 g/dL (3.2-5.0); Alkaline Phosphatase 152 U/L (45-117); Anion Gap 8 (5-15); BUN 8 mg/dL (7-18); BUN/Creat Ratio 14.1 RATIO (10-20); Calcium,Total 9.2 mg/dL (8.5-10.1); Chloride 106 mmol/L (98-107); Creatinine, Serum 0.57 mg/dL (0.55-1.02); EST Glomerular Filtration Rate 131 mL/min (>60); Est Glom Filt Rate - Afr Amer 158 mL/min (>60); Globulin 4.4 g/dL (2.2-4.2); Glucose 74 mg/dL (74-106); Sodium Level 139 mmol/L (136-145)
[2023-05-09 12:09] LABS: CCP IgG Antibodies 9 units (0-19)
[2023-05-09 13:08] LABS: ANTINUCLEAR ANTIBODIES DIRECT Negative (Negative)
== END | disposition home or self-care (01) ==
LOC: BIMLAB 14:14
PROVIDERS: PCP Internal Medicine; Visit Provider Internal Medicine
DX: R53.81 Other malaise (principal); R53.83 Other fatigue; R20.0 Anesthesia of skin; R20.2 Paresthesia of skin; M19.90 Unspecified osteoarthritis, unspecified site; E03.9 Hypothyroidism, unspecified; N92.6 Irregular menstruation, unspecified
CPT/HCPCS: 36415; 80053; 82607; 84443; 84703; 85652; 86038; 86140; 86200; 86225; 86235; 86431